=== PATIENT | female | born 1950 | race American Indian/Alaskan Native ===

== ENCOUNTER 2017-04-29 22:43 | Emergency (ER) | payer MEDICARE ==
[~2017-04-29] VITALS: Ht 149.9 cm; Wt 68.0 kg
[~2017-04-29 22:43] MED LIST: CARV12.52; ENAL20TA76; GLYB2.5T4; HYDR12.570; HYDR1TAB PO; LEVO50TA63; MECL25TA3 PO; NFMET1000; PENI500T PO; SIMV10TA3
--- OUTSIDE RECORDS SUMMARY | 2017-04-29 22:49 | XMS REPORT | Continuity of Care Document ---
Author Author [facility] Organization [facility] Address Unknown Phone Unavailable Allergies Active Description Code Type Severity Reaction Onset Reported/Identified Relationship to Patient Clinical Status Yes nifedipine [id number] Drug Allergy Mild N/A 10/13/2008 Medications Problems Date Dx Coded Attending Type Code Diagnosis Diagnosed By 04/15/2015 JENNIFER AYERS MD Ot E11.9 04/15/2015 JENNIFER AYERS MD Ot I10 04/15/2015 JENNIFER AYERS MD Ot R42 Procedures Results Encounters ACCT No. Visit Date/Time Discharge Status Pt. Type Provider Facility Loc./Unit Complaint [id number] 04/15/2015 05:34:00 2014 08:23:00 DIS Emergency JENNIFER AYERS MD [facility] ER
[2017-04-29] MEDS ORDERED: LACTATED RINGERS 1,000 ML IV ONE (23:09)
[2017-04-29] MEDS ORDERED: NS IV 1000 ML 1,000 ML ONE (23:14)
[2017-04-29] MEDS ORDERED: ACETAMINOPHEN 500 MG TAB (TYLENOL) PO ONE (23:15)
[2017-04-29] MEDS ORDERED: ONDANSETRON 4 MG/2 ML (SDV) Z0FRAN IVP ONE (23:15)
[2017-04-29] MEDS ORDERED: IBUPROFEN 800 MG (MOTRIN) TAB PO ONE (23:15)
[2017-04-29 23:26] LABS: BASOPHILS % (AUTO) 0 % (0-10); EOSINOPHILS # (AUTO) 0.1 10^3/uL (0.0-0.3); EOSINOPHILS % (AUTO) 1 % (0-10); LYMPHOCYTES # (AUTO) 0.4 X 10^3 (1.0-4.0); LYMPHOCYTES % (AUTO) 4 % (12-44); MEAN CORPUSCULAR HEMOGLOBIN 30 PG (25-34); MEAN CORPUSCULAR HGB CONC 34 G/DL (32-36); MEAN CORPUSCULAR VOLUME 89 FL (80-99); MEAN PLATELET VOLUME 9.7 FL (7.4-10.4); MONOCYTES # (AUTO) 0.5 X 10^3 (0.0-1.0); MONOCYTES % (AUTO) 5 % (0-12); NEUTROPHILS # (AUTO) 8.6 X 10^3 (1.8-7.8); NEUTROPHILS % (AUTO) 89 % (42-75); PLATELET COUNT 226 10^3/uL (130-400); RED BLOOD COUNT 4.24 10^6/uL (4.35-5.85); RED CELL DISTRIBUTION WIDTH 12.3 % (10.0-14.5); WHITE BLOOD COUNT 9.7 10^3/uL (4.3-11.0)
--- NOTE | 2017-04-29 23:36 | ED General ---
General Chief Complaint: Fever-Adult/Adol Stated Complaint: FEVER,THROWING UP,COLD Source of Information: Patient, Family (GRAND DAUGHTER) History of Present Illness Time Seen by Provider: 23:09 Initial Comments PT ARRIVES VIA POV FROM HOME C/O NAUSEA AND VOMITED X 3, ALONG WITH DIZZINESS X 30 MINUTES NO ABDOMINAL PAIN NO DIARRHEA PT STATES SHE HAS MENIERE'S / VERTIGO AND HAS ANTIVERT, BUT HAS NOT TAKEN ANY RECENTLY AND DID NOT TAKE ANY TONIGHT STATES SHE MIGHT HAVE BEEN A LITTLE DIZZY EARLIER IN THE DAY, BUT OTHERWISE FELT FINE NO URINARY SYMPTOMS NO COUGH/URI SYMPTOMS NO HEADACHE PT HAS TEMP OF 103.5 ON ARRIVAL TO ER, BUT PT WAS UNAWARE OF FEVER, AND PT WAS VERY HEAVILY BUNDLED INCLUDING A THICK HAT PT HAS HAD RIGHT EYE INFECTION SINCE YESTERDAY, HAS NOT SOUGHT CARE, AND TAKING BENADRYL EVERY 4 HOURS---STATES IT IS GETTING BETTER. NO VISION CHANGES HAS HISTORY OF THESE SAME SYMPTOMS NO KNOWN SICK CONTACTS HAS NOT TAKEN HER PM MEDICATIONS, BUT HAS EATEN ALOT OF HALLOWEEN CANDY TONIGHT PCP: CLINIC IN [place] Allergies and Home Medications Allergies Coded Allergies: Nifedipine (Unverified Allergy, Mild, 10/13/08) Home Medications Carvedilol 12.5 Mg Tablet, (Reported) Cefdinir 300 Mg Capsule, 300 MG PO BID, #20 Prescribed by: ELAL WHALEN on 04/30/1735 Ciprofloxacin HCl 2.5 Ml Drops, 2.5 ML OP UD for 7 Days, #1 2 DROPS TO AFFECTED EYE EVERY 2 HOURS WHILE AWAKE FOR FIRST 2 DAYS, THEN Q 4 HOURS WHILE AWAKE FOR A TOTAL OF 7 DAYS Prescribed by: ELLA WHALEN on 04/30/17 003 Enalapril Maleate 20 Mg Tablet, (Reported) Glyburide 2.5 Mg Tablet, (Reported) Hydrochlorothiazide 12.5 Mg Cap, (Reported) Hydrocodone Bit/Acetaminophen 1 Each Tablet, 1-2 EACH PO Q4HR PRN, #20 Ref 0 PRN PAIN Prescribed by: LIYA CASILLAS on 10/14/08 0057 Levothyroxine Sodium 50 Mcg Tablet, (Reported) Meclizine HCl 25 Mg Tablet, 25 MG PO Q4H, #30 Prescribed by: JENNIFER AYERS on 04/15/15 0810 Metformin Hcl 1,000 Mg Tablet, (Reported) Ondansetron 4 Mg Tab.rapdis, 4 MG PO Q4H, #10 Prescribed by: ELLA WHALEN on 04/30/17 0036 Penicillin V Potassium 500 Mg Tablet, 500 MG PO BID, #10 Ref 0 Prescribed by: LIYA CASLILAS on 10/14/08 0058 Simvastatin 10 Mg Tablet, (Reported) Constitutional: see HPI, dizziness, weakness EENTM: see HPI, ear discharge Respiratory: no symptoms reported, No cough, No short of breath Cardiovascular: no symptoms reported Gastrointestinal: see HPI, No abdominal pain, No diarrhea, No loss of appetite , nausea, vomiting Genitourinary: no symptoms reported Musculoskeletal: no symptoms reported Skin: no symptoms reported Psychiatric/Neurological: No Symptoms Reported, Denies Headache, Denies Numbness, Denies Paresthesia, Denies Seizure Hematologic/Lymphatic: No Symptoms Reported Immunological/Allergic: no symptoms reported Past Grptimf-Kscmwe-Tosogr Hx Patient Social History Alcohol Use: Denies Use Recreational Drug Use: No Smoking Status: Never a Smoker Recent Foreign Travel: No Contact w/Someone Who Travel: No Surgeries History of Surgeries: Yes (HERNIA REPAIR) Surgeries: Abdominal, Gallbladder Respiratory History of Respiratory Disorde: No Cardiovascular History of Cardiac Disorders: Yes Cardiac Disorders: Hypertension Neurological History of Neurological Disord: Yes (MENIERE'S / VERTIGO) Neurological Disorders: Vertigo Reproductive System Hx Reproductive Disorders: No Genitourinary History of Genitourinary Disor: No Gastrointestinal History of Gastrointestinal Di: No (S/P SUSAN) Gastrointestinal Disorders: Gall Bladder Disease Musculoskeletal History of Musculoskeletal Dis: Yes (LEFT SHOULDER FX. LEFT KNEE FX--NO SURGERIES) Endocrine History of Endocrine Disorders: Yes Endocrine Disorders: Diabetes, Non-Insulin dep HEENT History of HEENT Disorders: No Cancer History of Cancer: No Psychosocial History of Psychiatric Problem: No Integumentary History of Skin or Integumenta: No Blood Transfusions History of Blood Disorders: No Adverse Reaction to a Blood Tr: No Physical Exam Vital Signs Vital Sign - Last 12Hours 04/29/17 23:03 Temp 103.5 Pulse 85 Resp 18 B/P (MAP) 201/98 Pulse Ox 95 O2 Delivery Room Air Capillary Refill : General Appearance: No Apparent Distress, WD/WN, Other (MILDLY LETHARGIC) HEENT: PERRL/EOMI, Other (RIGHT CONJUNCTIVA INFLAMED WITH PURULENT DRAINAGE. SLIGHT SWELLING AND ERYTHEMA TO UPPER AND LOWER EYELIDS, NO TENDERNESS TO AREA) Neck: Full Range of Motion, Normal Inspection, Non Tender, Supple Respiratory: Normal Breath Sounds, No Accessory Muscle Use, No Respiratory Distress Cardiovascular: Regular Rate, Rhythm, No Edema, No JVD, No Murmur, Normal Peripheral Pulses Gastrointestinal: Normal Bowel Sounds, No Organomegaly, No Pulsatile Mass, Non Tender, Soft Back: Normal Inspection, No CVA Tenderness, No Vertebral Tenderness Extremity: Normal Capillary Refill, Normal Inspection, Normal Range of Motion, Non Tender, No Calf Tenderness, No Pedal Edema Neurologic/Psychiatric: Alert, Oriented x3, No Motor/Sensory Deficits, Normal Mood/Affect, assistant printer floor covering II-XII Norm as Tested Skin: Normal Color, Warm/Dry Focused Exam Evaluation Lactate Level Laboratory Tests 04/29/17 23:13: Lactic Acid Level 2.06*H Lactic Acid Level Laboratory Tests Test 04/29/17 23:13 Lactic Acid Level 2.06 MMOL/L (0.50-2.00) *H Progress/Results/Core Measures Results/Orders Lab Results Laboratory Tests Test 04/29/17 23:13 04/29/17 23:58 Range/Units White Blood Count 9.7 4.3-11.0 10^3/uL Red Blood Count 4.24 L 4.35-5.85 10^6/uL Hemoglobin 12.9 11.5-16.0 G/DL Hematocrit 38 35-52 % Mean Corpuscular Volume 89 80-99 FL Mean Corpuscular Hemoglobin 30 25-34 PG Mean Corpuscular Hemoglobin Concent 34 32-36 G/DL Red Cell Distribution Width 12.3 10.0-14.5 % Platelet Count 226 130-400 10^3/uL Mean Platelet Volume 9.7 7.4-10.4 FL Neutrophils (%) (Auto) 89 H 42-75 % Lymphocytes (%) (Auto) 4 L 12-44 % Monocytes (%) (Auto) 5 0-12 % Eosinophils (%) (Auto) 1 0-10 % Basophils (%) (Auto) 0 0-10 % Neutrophils # (Auto) 8.6 H 1.8-7.8 X 10^3 Lymphocytes # (Auto) 0.4 L 1.0-4.0 X 10^3 Monocytes # (Auto) 0.5 0.0-1.0 X 10^3 Eosinophils # (Auto) 0.1 0.0-0.3 10^3/uL Basophils # (Auto) 0.0 0.0-0.1 10^3/uL Neutrophils % (Manual) 94 % Lymphocytes % (Manual) 4 % Monocytes % (Manual) 2 % Eosinophils % (Manual) 0 % Basophils % (Manual) 0 % Band Neutrophils 0 % Blood Morphology Comment NORMAL Sodium Level 140 135-145 MMOL/L Potassium Level 3.6 3.6-5.0 MMOL/L Chloride Level 106 98-107 MMOL/L Carbon Dioxide Level 20 L 21-32 MMOL/L Anion Gap 14 5-14 MMOL/L Blood Urea Nitrogen 14 7-18 MG/DL Creatinine 1.02 0.60-1.30 MG/DL Estimat Glomerular Filtration Rate 54 BUN/Creatinine Ratio 14 Glucose Level 260 H 70-105 MG/DL Lactic Acid Level 2.06 *H 0.50-2.00 MMOL/L Calcium Level 9.0 8.5-10.1 MG/DL Total Bilirubin 0.4 0.1-1.0 MG/DL Aspartate Amino Transf (AST/SGOT) 35 H 5-34 U/L Alanine Aminotransferase (ALT/SGPT) 27 0-55 U/L Alkaline Phosphatase 95 40-136 U/L Total Protein 7.4 6.4-8.2 GM/DL Albumin 3.9 3.2-4.5 GM/DL Urine Color YELLOW Urine Clarity CLEAR Urine pH 8 5-9 Urine Specific [place] 1.010 L 1.016-1.022 Urine Protein 2+ H NEGATIVE Urine Glucose (UA) 4+ H NEGATIVE Urine Ketones NEGATIVE NEGATIVE Urine Nitrite NEGATIVE NEGATIVE Urine Bilirubin NEGATIVE NEGATIVE Urine Urobilinogen NORMAL NORMAL MG/DL Urine Leukocyte Esterase 1+ H NEGATIVE Urine RBC (Auto) NEGATIVE NEGATIVE Urine RBC NONE /HPF Urine WBC 2-5 /HPF Urine Squamous Epithelial Cells 0-2 /HPF Urine Crystals NONE /LPF Urine Bacteria NEGATIVE /HPF Urine Casts NONE /LPF Urine Mucus NEGATIVE /LPF Urine Culture Indicated NO Micro Results Microbiology 04/29/17 Influenza Types A,B Antigen ([facility]) - Final, Complete My Orders Orders - ELLA WHALEN DO Saline Lock/Iv-Start (04/29/17 23:09) Cbc With Automated Diff (04/29/17 23:09) Comprehensive Metabolic Panel (04/29/17 23:09) Lactic Acid Analyzer (04/29/17 23:09) Ua Culture If Indicated (04/29/17 23:09) Blood Culture (04/29/17 23:09) Influenza A And B Antigens (04/29/17 23:09) Chest 1 View, Ap/Pa Only (04/29/17 23:09) Lactated Ringers (Lr 1000 Ml Iv Solution (04/29/17 23:09) Ondansetron Injection (Zofran Injectio (04/29/17 23:15) Acetaminophen Tablet (Tylenol Tablet) (04/29/17 23:15) Ibuprofen Tablet (Motrin Tablet) (04/29/17 23:15) Monitor-Rhythm Ecg Trace Only (04/29/17 23:09) Ns Iv 1000 Ml (Sodium Chloride 0.9%) (04/29/17 23:14) Manual Differential (04/29/17 23:13) Ceftriaxone Injection (Rocephin Injectio (04/30/17 00:30) Ceftriaxone Injection (Rocephin Injectio (04/30/17 00:19) Ns (Ivpb) (Sodium Chloride 0.9% Ivpb Bag (04/30/17 00:19) Medications Given in ED Current Medications Medications Dose Ordered Sig/John Route Start Time Stop Time Status Last Admin Dose Admin Acetaminophen 1,000 mg ONCE ONCE PO 04/29/17 23:15 04/29/17 23:16 DC 04/30/17 00:04 1,000 MG Ceftriaxone Sodium 1000 mg/ Sodium Chloride 50 ml @ 100 mls/hr ONCE ONCE IV 04/30/17 00:30 04/30/17 00:59 UNV 04/30/17 00:31 100 MLS/HR Ibuprofen 800 mg ONCE ONCE PO 04/29/17 23:15 04/29/17 23:16 DC 04/30/17 00:04 800 MG Ondansetron HCl 4 mg ONCE ONCE IVP 04/29/17 23:15 04/29/17 23:16 DC 04/29/17 23:25 4 MG Sodium Chloride 1,000 ml @ ud STK-MED ONCE .ROUTE 04/29/17 23:14 04/29/17 23:23 DC 04/29/17 23:25 1,000 MLS/HR Vital Signs/I&O Vital Sign - Last 12Hours 04/29/17 23:03 Temp 103.5 Pulse 85 Resp 18 B/P (MAP) 201/98 Pulse Ox 95 O2 Delivery Room Air Progress Note : Progress Note NAUSEA AND DIZZINESS RESOLVED WITH ZOFRAN AND IV FLUIDS PT AMBULATED TO AND FROM BATHROOM WITHOUT ANY DIFFICULTY AND NO DIZZINESS Diagnostic Imaging Comments CXR--NO ACUTE PROCESS, PENDING RADIOLOGIST REVIEW Reviewed: Reviewed by Me Departure Impression Impression: Primary Impression: UTI (urinary tract infection) Additional Impressions: NIDDM Nausea & vomiting Chronic vertigo Conjunctivitis Disposition: HOME, SELF-CARE Condition: Improved Departure-Patient Inst. Referrals: NO,LOCAL PHYSICIAN (PCP/Family) Primary Care Physician Patient Instructions: Blood Glucose Monitoring, Conjunctivitis (Pinkeye) (DC), Diabetes Diet , Nausea and Vomiting, Adult (DC), Urinary Tract Infection, Adult (DC), VERTIGO Add. Discharge Instructions: CLEAR LIQUIDS--WATER, BROTH, JELLO, GATORADE BRATS DIET--BANANAS, RICE, APPLESAUCE, TOAST SALTINES TAKE YOUR MEDICATIONS PRESCRIBED FOLLOW UP WITH YOUR DR IN 1-2 DAYS IF NO BETTER All discharge instructions reviewed with patient and/or family. Voiced understanding. Scripts Ondansetron (Zofran Odt) 4 Mg Tab.rapdis 4 MG PO Q4H for Nausea/Vomiting, #10 TAB Prov: ELLA WHALEN DO 04/30/17 Ciprofloxacin HCl (Ciprofloxacin HCl) 2.5 Ml Drops 2.5 ML OP UD for 7 Days, #1 DROPS 2 DROPS TO AFFECTED EYE EVERY 2 HOURS WHILE AWAKE FOR FIRST 2 DAYS, THEN Q 4 HOURS WHILE AWAKE FOR A TOTAL OF 7 DAYS Prov: ELLA WHALEN DO 04/30/17 Cefdinir (Cefdinir) 300 Mg Capsule 300 MG PO BID for FOR INFECTION, #20 CAP Prov: ELLA WHALEN DO 04/30/17 ELLA WHALEN DO Apr 29, 2017 23:36
[2017-04-29 23:43] LABS: BAND NEUTROPHILS 0 %; BASOPHILS % (MANUAL) 0 %; EOSINOPHILS % (MANUAL) 0 %; LYMPHOCYTES % (MANUAL) 4 %; NEUTROPHILS % (MANUAL) 94 %
[2017-04-29 23:47] LABS: ALBUMIN 3.9 GM/DL (3.2-4.5); BILIRUBIN,TOTAL 0.4 MG/DL (0.1-1.0); CREATININE SERUM 1.02 MG/DL (0.60-1.30); POTASSIUM 3.6 MMOL/L (3.6-5.0); TOTAL PROTEIN 7.4 GM/DL (6.4-8.2)
[2017-04-30 00:11] LABS: BILIRUBIN,URINE NEGATIVE (NEGATIVE); KETONES,URINE NEGATIVE (NEGATIVE); LEUKOCYTE ESTERASE ,URINE 1+ (NEGATIVE); NITRITE,URINE NEGATIVE (NEGATIVE); PH,URINE 8 (5-9); PROTEIN,URINE 2+ (NEGATIVE); UROBILINOGEN,URINE NORMAL (NORMAL)
[2017-04-30 00:13] LABS: SQUAMOUS EPITHELIAL CELL,UR 0-2 /HPF
[2017-04-30] MEDS ORDERED: cefTRIAXone 1 GM (ROCEPHIN) VIAL ONE (00:19)
[2017-04-30] MEDS ORDERED: NS (IVPB) 50 ML ONE (00:19)
[2017-04-30] MEDS ORDERED: cefTRIAXone INJECTION 1,000 MG in NS (IVPB) 50 ML IV ONE (00:30)
[2017-04-30] MEDS ORDERED: CEFD300C3 PO (00:36)
[2017-04-30] MEDS ORDERED: ONDA4TAB8 PO (00:36)
[2017-04-30] MEDS ORDERED: CIPR2.5D2 OP (00:36)
[2017-04-30 00:45] VITALS: BP 134/61
--- NOTE | 2017-04-30 06:56 | Diagnostic Imaging Report ---
INDICATION: Dizziness and fever. COMPARISON: None. FINDINGS: Single frontal view of the chest obtained. Heart size is mildly enlarged. There is no central venous congestion or evidence of failure. No pneumothorax, mediastinal widening or pleural fluid. The lungs are clear. IMPRESSION: Mild cardiomegaly without evidence of failure. No findings of pneumonia or other acute abnormality in the chest. Dictated by: Dictated on workstation # [id number]
== END 2017-04-30 00:45 | disposition home or self-care (01) ==
LOC: EDUNIT# 22:43 → ER 22:45
DX: N39.0 Urinary tract infection, site not specified (principal); E11.9 Type 2 diabetes mellitus without complications; R42 Dizziness and giddiness; H10.9 Unspecified conjunctivitis; I10 Essential (primary) hypertension; Z90.49 Acquired absence of other specified parts of digestive tract; Z79.84 Long term (current) use of oral hypoglycemic drugs; Z87.19 Personal history of other diseases of the digestive system
CPT/HCPCS: 36415; 71010; 80053; 81000; 83605; 85007; 85027; 87040; 87804; 96361; 96374; 96375

== ENCOUNTER 2020-02-04 14:06 | Day surgery (SDC) | payer MEDICARE ==
[2020-02-04] VITALS (8 sets, daily range): BP systolic 95–151; BP diastolic 56–82
[~2020-02-04] VITALS: Ht 157 cm; Wt 66.2 kg
[~2020-02-04 14:06] MED LIST changes: +CEFD300C3 PO; +CIPR2.5D2 OP; +ONDA4TAB8 PO
[2020-02-04] MEDS ORDERED: HEParin 1000 UNIT/ML (10ML VIAL) FOR BOLUS ONE ×2 (14:07→14:14)
--- NOTE | 2020-02-04 14:07 | NUR ---
EKG shows Acute Inferior Infarct with ST elevation present. Isac Blas NP notified Dr. Aguilera. laborer wrecking and salvaging getting ready for patient.
[2020-02-04] MEDS ORDERED: CLOPIDOGREL 300 MG (PLAVIX) TABLET PO ONE ×2 (14:08→14:45)
[2020-02-04] MEDS ORDERED: ASPIRIN 81 MG CHEW (CHILDREN'S ASA) ONE (14:08)
--- NOTE | 2020-02-04 14:08 | NUR ---
Crash cart in room. Defibrillation patches placed on the patient. Patient's heart rate continues to be 36.
--- NOTE | 2020-02-04 14:11 | NUR ---
Aspirin 324 mg given PO. Plavix 300 mg given PO.
--- NOTE | 2020-02-04 14:11 | NUR ---
Heparin Bolus 5000 units given IVP.
[2020-02-04] MEDS ORDERED: MIDAZOLAM 5 MG/5 ML (VERSED) VIAL ONE (14:12)
[2020-02-04] MEDS ORDERED: fentaNYL INJECTION 100 MCG/2 ML AMP ONE ×2 (14:12→14:20)
[2020-02-04] MEDS ORDERED: LIDOCAINE 1% INJ 20 ML 20 ML VIAL ONE (14:12)
[2020-02-04] MEDS ORDERED: NS IV 1000 ML 1,000 ML ONE ×2 (14:12)
--- NOTE | 2020-02-04 14:12 | NUR ---
Patient gave verbal consent for Heart cath.
[2020-02-04] MEDS ORDERED: HEParin (CATH LAB) 2,000 ML IV ONE (14:13)
[2020-02-04] MEDS ORDERED: NITRO DRIP 25000 MCG/D5W 0 ML IV ONE (14:15)
[2020-02-04] MEDS ORDERED: EPTIFIBATIDE BOLUS 20 ML IV ONE (14:15)
--- NOTE | 2020-02-04 14:15 | NUR ---
14:15 Atropine 0.5 mg given IVP. Heart rate does not change from 36. 14:17 BP 82/65, Pulse 37, O2 sat 100% RA 14:18 16 fr. flores catheter placed by Saurabh GARDINER. Clear yellow urine present in tubing. 14:20 UA collected from flores to send to lab. 14:21 Dopamine IV started at 5 mcg/kg/min via IV pump. 14:22 Pacing started by Isac Blas SENIOR CLINICAL DATA MANAGER rate of 70 with pacing current output of 40 mA. 14:22 Patient taken by cart to laborer plumbing with bus driver/monitor and defibrillator with Saurabh GARDINER, Brandee GARDINER and Isac Blas, SENIOR CLINICAL DATA MANAGER.
[2020-02-04] MEDS ORDERED: CATHETER FLUSH 10 ML SYR IV ONE (14:16)
[2020-02-04] MEDS ORDERED: DOPamine DRIP 250 ML IV ONE (14:16)
[2020-02-04] MEDS ORDERED: EPINEPHrine 0.1 MG/ML 10 ML (HOSPIRA) SYR IJ ONE (14:16)
[2020-02-04] MEDS ORDERED: ATROPINE INJECTION 1 MG/10 ML SYR (ABBOTT) INJ ONE (14:16)
[2020-02-04] MEDS: DOPamine DRIP 250 ML IV SCH (14:21)
[2020-02-04] MEDS ORDERED: ASPIRIN 81 MG CHEW (CHILDREN'S ASA) PO ONE (14:45)
[2020-02-04] MEDS ORDERED: NS IV 1000 ML 1,000 ML IV STA (14:50)
--- NOTE | 2020-02-04 14:52 | ED Cardiac General ---
History of Present Illness General Chief Complaint: Cardiac/General Problems Stated Complaint: CATH Nursing Triage Note: Patient brought to ER room 7 via [facility] with complaint of elevated blood sugar. Patient states she was driving in her vehicle when she suddenly began to feel ill and pulled over and called EMS. She states she began to have visual disturbances and generalized weakness. patient denies any chest pain or shortness of breath. EMS states their glucometer read HI. A IV was placed by them and fluid bolus started. When patient arrived she was very diaphoretic with hypotension and a heart rate of 35. She continues to deny any chest pain at this time. Source: patient Exam Limitations: no limitations History of Present Illness Date Seen by Provider: Feb 04, 2020 Time Seen by Provider: 14:47 Initial Comments to ER by EMS with reports of hyperglycemia. Patient began feeling ill suddenly while driving her car just prior to arrival. She pulled over and summoned EMS. Her blood sugar was found to be too high to read. She had an IV started and had 1 L of IV fluids started. She is a known diabetic on metformin and glyburide Timing/Duration: changing over time Severity: moderate Activities at Onset: none NTG SL OYSTER HARVESTER: No ASA po OYSTER HARVESTER: No Associated Systoms: Diaphoresis Allergies and Home Medications Allergies Coded Allergies: nifedipine (Unverified Allergy, Mild, 10/13/08) Home Medications Cefdinir 300 Mg Capsule, 300 MG PO BID Prescribed by: ELLA WHALEN on 04/30/1735 Ciprofloxacin HCl 2.5 Ml Drops, 2.5 ML OP UD 2 DROPS TO AFFECTED EYE EVERY 2 HOURS WHILE AWAKE FOR FIRST 2 DAYS, THEN Q 4 HOURS WHILE AWAKE FOR A TOTAL OF 7 DAYS Prescribed by: ELLA WHALEN on 04/30/1735 Hydrocodone Bit/Acetaminophen 1 Each Tablet, 1-2 EACH PO Q4HR PRN PRN PAIN Prescribed by: LIYA CASILLAS on 10/14/08 005 Meclizine HCl 25 Mg Tablet, 25 MG PO Q4H Prescribed by: JENNIFER AYERS on 04/15/15 0810 Ondansetron 4 Mg Tab.rapdis, 4 MG PO Q4H Prescribed by: ELLA WHALEN on 04/30/1735 Penicillin V Potassium 500 Mg Tablet, 500 MG PO BID Prescribed by: LIYA CASILLAS on 10/14/08 0058 Patient Home Medication List Home Medication List Reviewed: Yes Review of Systems Review of Systems Constitutional: see HPI, diaphoresis EENTM: No Symptoms Reported Respiratory: No Symptoms Reported Cardiovascular: No Symptoms Reported Gastrointestinal: No Symptoms Reported Genitourinary: No Symptoms Reported Musculoskeletal: no symptoms reported Skin: no symptoms reported Psychiatric/Neurological: No Symptoms Reported Endocrine: No Symptoms Reported Hematologic/Lymphatic: No Symptoms Reported Past Hnlczdg-Wzfrkm-Ukitfk Hx Patient Social History Alcohol Use: Denies Use Recreational Drug Use: No Smoking Status: Unknown if Ever Smoked 2nd Hand Smoke Exposure: No Recent Foreign Travel: No Contact w/Someone Who Travel: No Recent Infectious Disease Expo: No Recent Hopitalizations: No Past Medical History Surgeries: Yes (HERNIA REPAIR) Abdominal, Gallbladder Respiratory: No Cardiac: Yes Hypertension Neurological: Yes (MENIERE'S / VERTIGO) Vertigo : No Reproductive Disorders: No Genitourinary: No Gastrointestinal: No (S/P SUSAN) Gall Bladder Disease Musculoskeletal: Yes (LEFT SHOULDER FX. LEFT KNEE FX--NO SURGERIES) Endocrine: Yes Diabetes, Non-Insulin dep HEENT: No Cancer: No Psychosocial: No Integumentary: No Blood Disorders: No Adverse Reaction/Blood Tranf: No Physical Exam Vital Signs Vital Signs - First Documented 02/04/20 14:06 Temp 36.3 Pulse 36 Resp 16 B/P (MAP) 84/58 (67) Pulse Ox 100 O2 Delivery Room Air Capillary Refill : Less Than 3 Seconds Height, Weight, BMI Height: 4'11.00" Weight: 150lbs. oz. 68.691924mz; 27.00 BMI Method:Stated General Appearance: WD/WN, Moderate Distress (lethargic, diaphoretic, heart rat e of 36. Blood pressure 80s systolic. 2 L IV fluids infusing, dopamine started at 5 mics per kilo per minute increased to 10 mics per kilo per minute.Amp of atropine failed to affect heart rate. EKG shows ST elevation in multiple leads with reciprocal ST depression. Dr. Aguilera notified and patient shortly thereafter taken to Licensing Registration Examiner she was given 300mg plavix, 324mg asa, 5000 units heparin IV. ) HEENT: PERRL/EOMI, TMs Normal Neck: Full Range of Motion, Normal Inspection Respiratory: No Accessory Muscle Use, No Respiratory Distress Cardiovascular: Regular Rate, Rhythm, Normal Peripheral Pulses Gastrointestinal: Non Tender, Soft Extremity: Normal Capillary Refill, Normal Inspection Neurologic/Psychiatric: Alert, Oriented x3 Skin: Normal Color, Warm/Dry Progress/Results/Core Measures Results/Orders Vital Signs/I&O 02/04/20 14:06 Temp 36.3 Pulse 36 Resp 16 B/P (MAP) 84/58 (67) Pulse Ox 100 O2 Delivery Room Air Blood Pressure Mean: 67 Departure Impression Primary Impression: STEMI (ST elevation myocardial infarction) Qualified Codes: I21.3 - ST elevation (STEMI) myocardial infarction of unspecified site Additional Impression: Hyperglycemia Disposition: ADMITTED INPATIENT Condition: Critical Admissions Decision to Admit Reason: Admit from ER (General) Decision to Admit/Date: Feb 04, 2020 Time/Decision to Admit Time: 14:51 Departure-Patient Inst. Referrals: NO,LOCAL PHYSICIAN (PCP/Family) Primary Care Physician COLLIN KOCH APRN Feb 04, 2020 14:52
[2020-02-04 14:53] LABS: BASOPHILS % (AUTO) 0 % (0-10); EOSINOPHILS # (AUTO) 0.1 10^3/uL (0.0-0.3); EOSINOPHILS % (AUTO) 2 % (0-10); HEMATOCRIT 40 % (35-52); HEMOGLOBIN 13.7 G/DL (11.5-16.0); LYMPHOCYTES # (AUTO) 2.3 X 10^3 (1.0-4.0); LYMPHOCYTES % (AUTO) 30 % (12-44); MEAN CORPUSCULAR HEMOGLOBIN 32 PG (25-34); MEAN CORPUSCULAR HGB CONC 34 G/DL (32-36); MEAN CORPUSCULAR VOLUME 92 FL (80-99); MEAN PLATELET VOLUME 10.3 FL (7.4-10.4); MONOCYTES # (AUTO) 0.4 X 10^3 (0.0-1.0); MONOCYTES % (AUTO) 6 % (0-12); NEUTROPHILS # (AUTO) 4.7 X 10^3 (1.8-7.8); NEUTROPHILS % (AUTO) 63 % (42-75); PLATELET COUNT 211 10^3/uL (130-400); RED CELL DISTRIBUTION WIDTH 12.9 % (10.0-14.5); WHITE BLOOD COUNT 7.5 10^3/uL (4.3-11.0)
[2020-02-04 14:57] LABS: PROTHROMBIN TIME PATIENT 13.2 SEC (12.2-14.7)
[2020-02-04] MEDS ORDERED: ATROPINE INJECTION 1 MG/10 ML SYR (ABBOTT) IV ONE (15:00)
--- NOTE | 2020-02-04 15:00 | NUR ---
Patient's daughter Alexandra arrived at the ER. She was taken to lab pack chemist waiting room by Mallory GARDINER. laborer aquatic life notified that she is here.
[2020-02-04 15:06] LABS: ALBUMIN 3.9 GM/DL (3.2-4.5); BILIRUBIN,TOTAL 0.4 MG/DL (0.1-1.0); CALCIUM 8.9 MG/DL (8.5-10.1); CREATININE SERUM 1.41 MG/DL (0.60-1.30); MAGNESIUM 2.3 MG/DL (1.6-2.4); POTASSIUM 4.5 MMOL/L (3.6-5.0); TOTAL PROTEIN 7.2 GM/DL (6.4-8.2)
--- OUTSIDE RECORDS SUMMARY | 2020-02-04 15:14 | XMS REPORT | Continuity of Care Document ---
Author Organization Unknown Address Unknown Phone Unavailable Allergies Active Description Code Type Severity Reaction Onset Reported/Identified Relationship to Patient Clinical Status Yes nifedipine [id number] Drug Allerg y Mild N/A 10/13/2008 Medications There is no data. Problems Date Dx Coded Attending Type Code Diagnosis Diagnosed By 04/15/2015 JENNIFER AYERS MD, Ot E11 .9 TYPE 2 DIABETES MELLITUS WITHOUT COMPLIC 04/15/2015 JENNIFER AYERS MD, Ot I10 ESSENTIAL (PRIMARY) HYPERTENSION 04/15/2015 JENNIFER AYERS MD, Ot R42 DIZZINESS AND GIDDINESS 04/30/2017 OUMOU WHALEN DOA K Ot E11.9 TYPE 2 DIABETES MELLITUS WITHOUT COMPLIC 04/30/2017 MARLEE PEDRO ELLA K Ot H10.9 UNSPECIFIED CONJUNCTIVITIS 04/30/2017 MARLEE PEDRO ELLA K Ot I10 ESSENTIAL (PRIMARY) HYPERTENSION 04/30/2017 MARLEE PEDRO ELLA K Ot N39.0 URINARY TRACT INFECTION, SITE NOT SPECIF 04/30/2017 MARLEE PEDRO ELLA K Ot R11.2 NAUSEA WITH VOMITING, UNSPECIFIED 04/30/2017 MARLEE PEDRO ELLA K Ot R42 DIZZINESS AND GIDDINESS 04/30/2017 MARLEE PEDRO ELLA K Ot 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 Results Test Result Range Complete blood count (CBC) with automate d white blood cell (WBC) differential - 04/29/17 23:13 Blood leukocytes automated count (number/volume) 9.7 10*3/uL 4.3-11.0 Blood erythrocytes automated count (number/volume) 4.24 10*6/uL 4.35-5.85 Venous blood hemoglobin measurement (mass/volume) 12.9 g/dL 11.5-16.0 Blood hematocrit (volume fraction) 38 % 35-52 Automated erythrocyte mean corpuscular volume 89 [ foz_us] 80-99 Automated erythrocyte mean corpuscular h emoglobin (mass per erythrocyte) 30 pg 25-34 Automated erythrocyte mean corpuscular h emoglobin concentration measurement (mass/volume) 34 g/dL 32-36 Automated erythrocyte distribution width ratio 12. 3 % 10.0- 14.5 Automated blood platelet count (count/volume) 226 10*3/uL 130-400 Automated blood platelet mean volume measurement 9.7 [foz_us] 7.4-10.4 Automated blood neutrophils/100 leukocytes 89 % 42-75 Automated blood lymphocytes/100 leukocytes 4 % 12-44 Blood monocytes/100 leukocytes 5 % 0-12 Automated blood eosinophils/100 leukocytes 1 % 0-10 Automated blood basophils/100 leukocytes 0 % 0-10 Blood neutrophils automated count (number/volume) 8.6 10*3 1.8-7.8 Blood lymphocytes automated count (number/volume) 0.4 10*3 1.0-4.0 Blood monocytes automated count (number/volume) 0. 5 10*3 0.0-1.0 Automated eosinophil count 0.1 10*3/uL 0 .0-0.3 Automated blood basophil count (count/volume) 0.0 10*3/uL 0.0-0.1 Blood manual differential performed dete ction - 04/29/17 23:13 Blood monocytes/100 leukocytes 2 % NRG Manual blood segmented neutrophils/100 leukocytes 94 % NRG Blood band neutrophils/100 leukocytes 0 % NRG Manual blood lymphocytes/100 leukocytes 4 % NRG Manual eosinophils/100 leukocytes in nose 0 % NRG Manual blood basophils/100 leukocytes 0 % NRG Blood erythrocyte morphology finding identification NORMAL [facility] Comprehensive metabolic panel - 04/29/17 23:13 Serum or plasma sodium measurement (moles/volume) 140 mmol/L 135-145 Serum or plasma potassium measurement (moles/volume) 3.6 mmol/L 3.6-5.0 Serum or plasma chloride measurement (moles/volume) 106 mmol/L 98-107 Carbon dioxide 20 mmol/L 21-32 Serum or plasma anion gap determination (moles/volume) 14 mmol/L 5-14 Serum or plasma urea nitrogen measurement (mass/volume ) 14 mg/dL 7-18 Serum or plasma creatinine measurement (mass/volume) 1.02 mg/dL 0.60-1.30 Serum or plasma urea nitrogen/creatinine mass ratio 14 NRG Serum or plasma creatinine measurement w ith calculation of estimated glomerular filtration rate 54 NRG Serum or plasma glucose measurement (mass/volume) 260 mg/dL 70-105 Serum or plasma calcium measurement (mass/volume) 9.0 mg/dL 8.5-10.1 Serum or plasma total bilirubin measurement (mass/volu me) 0.4 mg/dL 0.1-1.0 Serum or plasma alkaline phosphatase anna surement (enzymatic activity/volume) 95 U/L 40-136 Serum or plasma aspartate aminotransfera se measurement (enzymatic activity/volume) 35 U/L 5-34 Serum or plasma alanine aminotransferase measurement (enzymatic activity/volume) 27 U/L 0-55 Serum or plasma protein measurement (mass/volume) 7.4 g/dL 6.4-8.2 Serum or plasma albumin measurement (mass/volume) 3.9 g/dL 3.2-4.5 Blood lactic acid measurement (moles/vol ume) - 04/29/17 23:13 Blood lactic acid measurement (moles/volume) 2.06 mmol/L 0.50-2.00 Bacterial blood culture - 04/29/17 23:13 Bacterial blood culture NG [facility] Influenza virus A and B antigen detectio n - 04/29/17 23:30 FLU RESULT NEGATIVE FOR INFLUENZA A AND B ANTIGENS BY IA [facility] Bacterial blood culture - 04/29/17 23:35 QUANTITY OF GROWTH Isolated [facility] Bacterial blood culture [id number] [facility] Complete urinalysis with reflex to cultu re - 04/29/17 23:58 Urine color determination YELLOW G Urine clarity determination CLEAR NR G Urine pH measurement by test strip 8 5-9 Specific gravity of urine by test strip 1.010 1.016-1.022 Urine protein assay by test strip, semi-quantitative 2+ NEGATIVE Urine glucose detection by automated test strip 4+ NEGATIVE Erythrocytes detection in urine sediment by light micr oscopy NEGATIVE NEGATIVE Urine ketones detection by automated test strip NE GATIVE NEGATIVE Urine nitrite detection by test strip NEGATIVE NEGATIVE Urine total bilirubin detection by test strip NEGA TIVE NEGATIVE Urine urobilinogen measurement by automated test strip (mass/volume) NORMAL NORMAL Urine leukocyte esterase detection by dipstick 1+ NEGATIVE Automated urine sediment erythrocyte cou nt by microscopy (number/high power field) NONE NRG Automated urine sediment leukocyte count by microscopy (number/high power field) [HPF] NRG Bacteria detection in urine sediment by light microsco py NEGATIVE NRG Squamous epithelial cells detection in u rine sediment by light microscopy 0-2 NRG Crystals detection in urine sediment by light microsco py NONE NRG Casts detection in urine sediment by light microscopy NONE NRG Mucus detection in urine sediment by light microscopy NEGATIVE NRG Complete urinalysis with reflex to culture NO NRG Encounters ACCT No. Visit Date/Time Discharge Status Pt. Type Provider Facility Loc./Unit Complaint [id number] 08/20/2018 10:05:00 08/20/2018 23:59: 59 CLS Outpatient JENNIFER LAMBERT TAMARMadina [facility] [id number] 04/29/2017 22:45:00 017 00:45:00 DIS Emergency ELLA WHALEN DO [facility] ER FEVER,THROWING UP,COLD [id number] 04/15/2015 05:34:00 015 08:23:00 DIS Emergency ANDRIA QUEVEDO, JENNIFER Alvarado [address] [facility] ER VOMITING
--- OUTSIDE RECORDS SUMMARY | 2020-02-04 15:14 | XMS REPORT ---
Author Author [employer] food [employer] [facility] [place] [employer] [facility] Address [address] [address] Care Team Providers [employer] Director Name Role Phone JENNIFER AYERS MD Unavailable Unavailable MARLEE DO, ELLA K Unavailable Unavailable Unavailable Unavailable Allergies Allergy Reported Allergen(s) Allergy Type Date of Reaction(s) Care Facility Classificati Onset Provider on NIFEdipine NIFEdipine Drug Allergy 10-13-2008 JENNIFER Naik (4 sources) ANDRIA QUEVEDO Available ([id number]) Encounters Encounter Date Encounter Type Encounter Diagnosis Care Provider Facility Start: Patient encounter NONE PCP [facility] 08-20-2018 procedure Center [facility] ([id number]) Start: Emergency department ELLA MARLEE DO Not Avai lable ([id number]) 04-29-2017 patient visit End: 04-30-2017 Start: Emergency department JENNIFER AYERS MD Not Av ailable ([id number]) 04-15-2015 patient visit End: 04-15-2015 Medical Equipment No Information Goals No Information Immunizations No Information Interventions No Information Medications No Information Payers No Information Plan of Treatment No Information Problems Active Problems Problem Problem Date Last Documented Episodic/Chr Provider Classificati Recorded Date onic on Diabetes Type 2 diabetes mellitus without Chronic JENNIFER mellitus complications ANDRIA QUEVEDO without complication (3 sources) Essential Essential (primary) hypertension Chronic JENNIFER hypertension ANDRIA QUEVEDO (3 sources) Past or Other Problems Problem Problem Date Last Documented Episodic/Chr Provider Classificati Recorded Date onic on Conditions Dizziness and giddiness Episodic RODN EY associated ANDRIA QUEVEDO with dizziness or vertigo (4 sources) Inflammation Unspecified conjunctivitis Episodic L ANUEL MARLEE DO , infection of eye (1 source) Nausea and Nausea with vomiting, unspecified Episodic ELLA MARLEE DO vomiting (1 source) Other Personal history of other diseases Episodic ELLA MARLEE DO gastrointest of the digestive system inal disorders (1 source) Unclassified Acquired absence of other specified Episodic ELLA MARLEE DO (1 source) parts of digestive tract Unclassified senior care (current) use of oral LIS A MARLEE DO (1 source) hypoglycemic drugs Urinary Urinary tract infection, site not Episodic ELLA MARLEE DO tract specified infections (1 source) Procedures No Information Results No Information Social History No Information Vital Signs No Information Functional Status No Information Mental Status No Information Additional Source Comments This clinical document has been generated using [employer] software that has been certified by the Office of the National Coordinator for Health Information Technology (ONC 15.99.04.3023.Diam.[id number]) and the National Committee for Estate Planner (NCQA, as an eMeasure certified technology). FOR RECORDS PERTAINING TO PATIENTS WHO ARE OR HAVE BEEN ENROLLED IN A CHEMICAL D EPENDENCY/SUBSTANCE ABUSE PROGRAM, SOME INFORMATION MAY BE OMITTED. This clinica l summary was aggregated from multiple sources. Caution should be exercised in using it in the provision of clinical care. This summary normalizes information from multiple sources, and as a consequence, information in this document may ma terially change the coding, format and clinical context of patient data. In otto tion, data may be omitted in some cases. CLINICAL DECISIONS SHOULD BE BASED ON T HE PRIMARY CLINICAL RECORDS. [employer] provides no warranty or guara ntee of the accuracy or completeness of information in this document.The followi ng information is based on time limited clinical information
[2020-02-04] MEDS ORDERED: ONDANSETRON 4 MG/2 ML (SDV) Z0FRAN ONE (15:43)
[2020-02-04] MEDS ORDERED: PANTOPRAZOLE 40 MG (PROTONIX) TAB PO ONE ×2 (15:45→16:15)
[2020-02-04] MEDS ORDERED: ACETAMINOPHEN 325 MG TABLET PO PRN (15:45)
[2020-02-04] MEDS ORDERED: NS IV 1000 ML 1,000 ML IV SCH (15:48)
[2020-02-04] MEDS ORDERED: D5 1/2 NS 1000 ML IV SOLUTION 1,000 ML IV ONE (15:58)
[2020-02-04] MEDS ORDERED: POTASSIUM CL 10MEQ/50ML IVPB 100 ML IV ONE (15:58)
[2020-02-04] MEDS ORDERED: 1/2 NS IV SOLUTION 1,000 ML IV ONE (15:58)
--- NOTE | 2020-02-04 15:58 | Cardiology History & Physical ---
HPI-Cardiology Cardiology H&P Date of Admission 02/04/20 Primary Care Physician Sylvie,Local Physician Attending Physician Remedios Aguilera MD FACP [facility] CCD[facility] Consulting Physician RENA CC: Gen malaise, abdominal discomfort HPI: 69 yo woman with h/o DM who suddenly felt unwell while driving her car, called EMS, blood sugar found to high (immeasurable), brought to ER, fond to have inf wall STEMI with severe bradycardia and hypotension. Had abd pain and nausea after presentation. We proceeded with emergency cath. Was exhibiting complete heart block and hypotension on the laborer turkey farm; treated with iv atropine and epinephrine. Found to have subtotal prox RCA occlusion; treated with balloon angioplasty (DBT 43 min) and subsequent cor stenting. Now feeling better. Does not report cough, fever, or chills. Had had some shortness of breath with cp, now better Review of Systems-Cardiology Review of Systems Constitutional: No weight loss, No weight gain Eyes: No vision change Ears/Nose/Throat: No ear discharge, No nasal drainage, No recent hearing loss Respiratory: As described under HPI Cardiovascular: As described under HPI Gastrointestinal: As described under HPI Genitourinary: No dysuria, No hematuria Musculoskeletal: No back pain, No joint pain Psychiatric/Neurological: No seizure, No focal weakness, No syncope Hematologic: No other, No bleeding abnormalities [id number] Hx Patient Social History Alcohol Use: Denies Use Recreational Drug Use: No Smoking Status: Unknown if Ever Smoked 2nd Hand Smoke Exposure: No Recent Foreign Travel: No Recent Infectious Disease Expo: No Hospitalization with Isolation: Denies Past Medical History PMH As described under Assessment. Family Medical History Family Medical History: No fam h/o early CAD reported Allergies and Home Medications Allergies Coded Allergies: nifedipine (Unverified Allergy, Mild, 10/13/08) Home Medications Cefdinir 300 Mg Capsule, 300 MG PO BID Prescribed by: ELLA WHALEN on 04/30/1735 Ciprofloxacin HCl 2.5 Ml Drops, 2.5 ML OP UD 2 DROPS TO AFFECTED EYE EVERY 2 HOURS WHILE AWAKE FOR FIRST 2 DAYS, THEN Q 4 HOURS WHILE AWAKE FOR A TOTAL OF 7 DAYS Prescribed by: ELLA WHALEN on 04/30/17 003 Hydrocodone Bit/Acetaminophen 1 Each Tablet, 1-2 EACH PO Q4HR PRN PRN PAIN Prescribed by: LIYA CASILLAS on 10/14/08 0057 Meclizine HCl 25 Mg Tablet, 25 MG PO Q4H Prescribed by: JENNIFER AYERS on 04/15/15 0810 Ondansetron 4 Mg Tab.rapdis, 4 MG PO Q4H Prescribed by: ELLA WHALEN on 04/30/17 0036 Penicillin V Potassium 500 Mg Tablet, 500 MG PO BID Prescribed by: LIYA CASILLAS on 10/14/08 0058 Patient Home Medication List Home Medication List Reviewed: Yes Physical Exam-Cardiology Physical Exam Vital Signs/I&O 02/04/20 02/04/20 02/04/20 14:06 14:21 14:22 Temp 36.3 36.3 Pulse 36 36 36 Resp 16 16 B/P (MAP) 84/58 (67) 82/65 72/42 Pulse Ox 100 100 O2 Delivery Room Air Room Air Capillary Refill : Less Than 3 Seconds Constitutional: AAO x 3, well-developed, well-nourished HEENT: EOMI, hearing is well preserved Neck: carotid pulses are 2 + bilaterally, with good upstrokes Respiratory: No accessory muscle use; other (fair to good bilat air entry) Cardiovascular: regular rate-rhythm, S1 and S2, systolic murmur (soft BHAVANA at card base) Gastrointestinal: soft; No guarding, No rebound; audible bowel sounds Extremities: No clubbing, No cyanosis, No significant edema Neurologic/Psychiatric: other (moves all limbs equally) Skin: No rash on exposed areas, No ulcerations on exposed areas Data Review Labs Laboratory Tests 02/04/20 14:10: White Blood Count 7.5, Red Blood Count 4.33L, Hemoglobin 13.7, Hematocrit 40, Mean Corpuscular Volume 92, Mean Corpuscular Hemoglobin 32, Mean Corpuscular Hemoglobin Concent 34, Red Cell Distribution Width 12.9, Platelet Count 211, Mean Platelet Volume 10.3, Neutrophils (%) (Auto) 63, Lymphocytes (%) (Auto) 30, Monocytes (%) (Auto) 6, Eosinophils (%) (Auto) 2, Basophils (%) (Auto) 0, Neutrophils # (Auto) 4.7, Lymphocytes # (Auto) 2.3, Monocytes # (Auto) 0.4, Eosinophils # (Auto) 0.1, Basophils # (Auto) 0.0, Prothrombin Time 13.2, INR Comment 1.0, Activated Partial Thromboplast Time 24, Sodium Level 137, Potassium Level 4.5, Chloride Level 106, Carbon Dioxide Level 14L, Anion Gap 17H, Blood Urea Nitrogen 17, Creatinine 1.41H, Estimat Glomerular Filtration Rate 37, BUN/Creatinine Ratio 12, Glucose Level 538*H, Calcium Level 8.9, Corrected Calcium 9.0, Magnesium Level 2.3, Total Bilirubin 0.4, Aspartate Amino Transf (AST/SGOT) 46H, Alanine Aminotransferase (ALT/SGPT) 44, Alkaline Phosphatase 79, Myoglobin 53.9, Troponin I 0.056H, B-Type Natriuretic Peptide 21.0, Total Protei n 7.2, Albumin 3.9 Laboratory Tests 02/04/20 14:10 A/P-Cardiology Assessment/Admission Diagnosis Ac inf wall STEMI. Card cath of 02/04/20: subtotal prox RCA successfully stented with Alp Xience 3.0 x 23 stent, mild to mod plaque of the L cors, LVEF 45-50%, posterobasal hypokinesis DM with diabetic ketoacidosis H/o hyperlipidemia H/o hypothyroidism Admission Status: Inpatient Order (span 2 midnights) Reason for Inpatient Admission: Has had ac [place] and has uncontrolled DM and acidosis Discussion and Recomendations * DAPT * BB, if tolerated * Statin * Hospitalist consult for management of DM and acidosis. Spoke with Dr Patiño * COVID test * I discussed her CV issues, cath finding, and interventions undertaken with her and her daughter * Monitor labs Clinical Quality Measures AMI/AHF: ASA po Prior to arrival: REMEDIOS Whitt MD FACP [facility] CCDS Feb 04, 2020 15:57
[2020-02-04] MEDS: POTASSIUM CL 10MEQ/50ML IVPB 50 ML IV SCH ×9 (16:14→23:40)
[2020-02-04] MEDS: 1/2 NS IV SOLUTION 1,000 ML IV SCH ×3 (16:15→20:52)
--- NOTE | 2020-02-04 16:23 | Cardiac Procedure Note-CS/ASA ---
Pre-Procedure Note Pre-Op Procedure Note H&P Reviewed The H&P was reviewed, patient examined and no changes noted. Date H&P Reviewed: Feb 04, 2020 Time H&P Reviewed: 15:00 Conscious Sedation Pre-Proced Time 15:00 ASA Score 4 For ASA 3 and 4: Consider anesthesia and medical clearance. Also, for patients with a history of failed moderate sedation consider anesthesia. Airway Lungs Heart ASA score ASA 1: a normal healthy patient ASA 2: a patient with a mild systemic disease (mid diabetes, controlled hypertension, obesity ASA 3: a patient with a severe systemic disease that limits activity (angina, COPD, prior Myocardial infarction) ASA 4: a patient with an incapacitating disease that is a constant threat to life (CHF, renal failure) ASA 5: a moribund patient not expected to survive 24 hrs. (ruptured aneurysm) ASA 6: a declared brain- patient whose organs are being harvested. For emergent operations, add the letter E after the classification Mallampati Classification Grade 2 Sedation Plan Analgesia, Amnesia, Plan communicated to team members, Discussed options with patient/fam, Discussed risks with patient/fam The patient is an appropriate candidate to undergo the planned procedure, sedation, and anesthesia. The patient immediately re-assessed prior to indication. MAT PEREIRA MD FACP [facility] CCDS Feb 04, 2020 16:23
[2020-02-04 16:30] LABS: BILIRUBIN,URINE NEGATIVE (NEGATIVE); CLARITY,URINE CLEAR; COLOR,URINE YELLOW; GLUCOSE, URINE (UA) 3+ (NEGATIVE); KETONES,URINE NEGATIVE (NEGATIVE); LEUKOCYTE ESTERASE ,URINE NEGATIVE (NEGATIVE); NITRITE,URINE NEGATIVE (NEGATIVE); PROTEIN,URINE NEGATIVE (NEGATIVE)
[2020-02-04] MEDS ORDERED: ONDANSETRON 4 MG/2 ML (SDV) Z0FRAN IVP PRN (16:30)
[2020-02-04 16:57] LABS: BACTERIA,URINE NEGATIVE /HPF
[2020-02-04 16:58] LABS: WBC,URINE RARE /HPF
[2020-02-04 17:56] LABS: CALCIUM 8.2 MG/DL (8.5-10.1); CREATININE SERUM 1.15 MG/DL (0.60-1.30); POTASSIUM 4.9 MMOL/L (3.6-5.0)
[2020-02-04] MEDS: D5 1/2 NS 1000 ML IV SOLUTION 1,000 ML IV SCH ×2 (19:54→23:46)
[2020-02-04 20:31] LABS: CALCIUM 7.7 MG/DL (8.5-10.1); CREATININE SERUM 1.06 MG/DL (0.60-1.30); POTASSIUM 4.1 MMOL/L (3.6-5.0)
--- NOTE | 2020-02-04 20:40 | NUR ---
DR RUSHING NOTIFIED OF PT CURRENT LAB RESULTS. ORDERS GIVEN TO DRAW NEXT BMP AT 0300 WITH AM LABS.
[2020-02-04] MEDS: meTOprolol TARTRATE 25 MG (LOPRESSOR) TABLET PO SCH (20:41)
--- NOTE | 2020-02-04 23:03 | CARDIAC CATHETERIZATION ---
DATE OF SERVICE: 02/04/2020 The patient is a 69-year-old lady who presented to the emergency room with acute ST elevation myocardial infarction. The ST elevations in the inferior leads. She was having profound bradycardia and intermittent complete heart block and hypotension. Emergency cardiac catheterization was carried out. PROCEDURE IN DETAIL: She was brought to the cardiac catheterization laboratory. Right groin was prepared and draped in the usual sterile fashion. Lidocaine 1% was used for local anesthesia. Modified Seldinger technique was used to advance a 6-Algerian sheath in right femoral artery. We proceeded with angiography of the right coronary artery first because that was a culprit vessel. Following angiography and the completion of the intervention (as described below), we carried out angiography of the left coronary system. For the left coronary system, we used a 6-Algerian JL4 catheter. We then carried out left heart catheterization, left ventricular angiography. We used a 6-Algerian pigtail catheter. The pigtail catheter was removed. Angiography of the right femoral artery was carried out through the sheath. Mynx was used to achieve hemostasis. PERCUTANEOUS INTERVENTION OF THE RIGHT CORONARY ARTERY: The right coronary artery was exhibiting 99% proximal stenosis. We used a 6-Algerian Armstrong's Clubb guide catheter to engage the right coronary artery. We used a ChoICE floppy PT wire to cross the lesion and the tip was placed in the distal vessel. We carried out balloon angioplasty with Emerge 2.5 x 20 mm balloon. This improved the stenosis from 99% to approximately 60% and restored normal antegrade flow. The balloon was removed and we then stented the diseased segment with Alpine Xience 3.0 x 23 mm stent that was deployed at 15 atmospheres. Subsequent angiography revealed 0% residual stenosis at the previous site of 99% stenosis and flow throughout the vessel is normal. HEMODYNAMICS: Left ventricular end-diastolic pressure following coronary angiography was 24 mmHg. There was no significant pressure gradient on pullback across the aortic valve. Ascending aortic pressure was 111/60 with a mean of 80 mmHg. LEFT VENTRICULAR ANGIOGRAPHY: Left ventricular angiography was carried out in the right anterior oblique projection. Global left ventricular systolic function is mildly impaired. There is posterobasal hypokinesis. Left ventricular ejection fraction is approximately 45% to 50%. There does not appear to be significant mitral regurgitation. CORONARY ANGIOGRAPHY: Left main coronary artery is free of significant disease. Left anterior descending and left circumflex arteries have diffuse mild to moderate plaque. Right coronary artery is dominant and had 99% proximal stenosis to which successful stenting was carried out as described above. CONCLUSIONS: 1. Coronary artery disease primarily consisting of 99% stenosis of the right coronary that was resulting in acute ST elevation myocardial infarction. This was treated with primary balloon angioplasty and subsequent stenting with Alpine Xience 3.0 x 23 mm stent. The rest of the coronary vessels have diffuse mild to moderate disease. 2. Mild impairment of global left ventricular systolic function. 3. Posterior basal hypokinesis. 4. Elevated left ventricular end-diastolic pressure (24 mmHg). 5. Left ventricular ejection fraction is estimated to be 45% to 50%. DISCUSSION AND RECOMMENDATIONS: Dual antiplatelet therapy is being continued. Statin therapy is being added. Beta blockers will be added as tolerated. Further recommendations will be based on hospital course. She has diabetes and acidosis. For this, we consulted the hospitalist service for management. Job ID: [id number] DocumentID: [id number] Dictated Date: 02/04/2020 16:19:08 Rock Drill Operator Date: 02/04/2020 23:01:59 Dictated By: MAT PEREIRA MD, MA, FACP, FACC,
[2020-02-05] VITALS (23 sets, daily range): BP systolic 93–181; BP diastolic 45–82
[2020-02-05] MEDS: POTASSIUM CL 10MEQ/50ML IVPB 50 ML IV SCH ×4 (01:42→05:44)
[2020-02-05] MEDS: 1/2 NS IV SOLUTION 1,000 ML IV SCH ×4 (03:01→16:34)
[2020-02-05 03:37] LABS: BASOPHILS % (AUTO) 0 % (0-10); EOSINOPHILS % (AUTO) 0 % (0-10); HEMATOCRIT 33 % (35-52); HEMOGLOBIN 11.4 G/DL (11.5-16.0); LYMPHOCYTES # (AUTO) 1.6 X 10^3 (1.0-4.0); LYMPHOCYTES % (AUTO) 16 % (12-44); MEAN CORPUSCULAR HEMOGLOBIN 31 PG (25-34); MEAN CORPUSCULAR HGB CONC 34 G/DL (32-36); MEAN CORPUSCULAR VOLUME 92 FL (80-99); MEAN PLATELET VOLUME 9.8 FL (7.4-10.4); MONOCYTES # (AUTO) 0.8 X 10^3 (0.0-1.0); MONOCYTES % (AUTO) 8 % (0-12); NEUTROPHILS # (AUTO) 7.8 X 10^3 (1.8-7.8); NEUTROPHILS % (AUTO) 77 % (42-75); PLATELET COUNT 166 10^3/uL (130-400); RED CELL DISTRIBUTION WIDTH 12.9 % (10.0-14.5); WHITE BLOOD COUNT 10.2 10^3/uL (4.3-11.0)
[2020-02-05] MEDS: D5 1/2 NS 1000 ML IV SOLUTION 1,000 ML IV SCH ×2 (03:47→08:18)
[2020-02-05 03:56] LABS: ALBUMIN 3.1 GM/DL (3.2-4.5); BILIRUBIN,TOTAL 0.4 MG/DL (0.1-1.0); CALCIUM 7.4 MG/DL (8.5-10.1); CREATININE SERUM 1.07 MG/DL (0.60-1.30); MAGNESIUM 1.8 MG/DL (1.6-2.4); PHOSPHORUS 2.1 MG/DL (2.3-4.7); POTASSIUM 4.2 MMOL/L (3.6-5.0); TOTAL PROTEIN 5.8 GM/DL (6.4-8.2)
[2020-02-05] MEDS: MAGNESIUM 1 GM/100 ML IVPB 100 ML IV SCH (04:01)
[2020-02-05] MEDS: KCL 20 MEQ TAB (K-DUR) PO SCH (04:01)
--- NOTE | 2020-02-05 04:07 | NUR ---
DR RUSHING NOTIFIED OF PT AM LABS. ORDERS RECEIVED TO CONTINUE DKA PROTOCOL, GIVE 10 UNITS OF LEVEMIR AT 0800 AND TURN OFF INSULIN DRIP AT 1100. NO LAB DRAWS NEEDED PER DR RUSHING.
[2020-02-05] MEDS: ENOXAPARIN 40 MG/0.4 ML (LOVENOX) SYR SC SCH (08:17)
[2020-02-05] MEDS: CLOPIDOGREL 75 MG (PLAVIX) TABLET PO SCH (08:17)
[2020-02-05] MEDS: PANTOPRAZOLE 40 MG (PROTONIX) TAB PO SCH (08:17)
[2020-02-05] MEDS: meTOprolol TARTRATE 25 MG (LOPRESSOR) TABLET PO SCH (08:18)
[2020-02-05] MEDS: ASPIRIN 81 MG CHEW (CHILDREN'S ASA) PO SCH (08:18)
--- NOTE | 2020-02-05 11:58 | Consultation - Hospitalist ---
HPI History of Present Illness: HPI/Chief Complaint Becky Sage is a 69-year-old female with past medical history of hypertension, hyperlipidemia, diabetes, hypothyroidism, who was admitted with STEMI. She reports that yesterday she was driving her car when she had vision trouble. She also reports feeling clammy and sweaty. She reports having abdom inal pain. She had some nausea and vomiting. She never had any chest pain. She denies any shoulder, arm, or jaw pain. She denies any shortness of breath. She denies any cough. She denies any diarrhea. She has a history of diabetes and takes oral medications for this. She says her doctor had told her that she might need to start taking insulin, but she was reluctant. She has no history of diabetic ketoacidosis. Source: patient Exam Limitations: no limitations Date Seen 02/05/20 Attending Physician Remedios Aguilera MD Facp Facc Ccds PCP No,Local Physician Referring Physician Date of Admission Home Medications & Allergies Home Medications Reviewed patient Home Medication Reconciliation performed by pharmacy medication reconciliations prior authorization technician and/or nursing. Patients Allergies have been reviewed. Allergies Allergies Coded Allergies nifedipine (Unverified Allergy, Mild, 10/13/08) Past Rlqhapd-Ulzsdm-Nfgxop Hx Past Med/Social Hx: Reviewed Nursing Past Med/Soc Hx Patient Social History Alcohol Use: Denies Use Recreational Drug Use: No Smoking Status: Unknown if Ever Smoked 2nd Hand Smoke Exposure: No Recent Foreign Travel: No Contact w/other who traveled: No Recent Hopitalizations: No Recent Infectious Disease Expo: No Past Medical History Surgeries: Abdominal, Gallbladder Cardiac: Hypertension Neurological: Vertigo : No Reproductive: No Gastrointestinal: Gall Bladder Disease Endocrine: Diabetes, Non-Insulin dep History of Blood Disorders: No Adverse Reaction to Blood Berg: No Family History Cardiovascular disease 19 FATHER G8 SISTER G8 BROTHER () Hypertension 19 FATHER 19 MOTHER G8 SISTER G8 BROTHER () Kidney disease G8 SISTER Review of Systems Constitutional: chills, malaise EENTM: blurred vision Respiratory: no symptoms reported Cardiovascular: no symptoms reported Gastrointestinal: abdominal pain, nausea, vomiting Genitourinary: no symptoms reported Musculoskeletal: no symptoms reported Skin: no symptoms reported Psychiatric/Neurological: No Symptoms Reported Physical Exam Physical Exam Vital Signs Vital Signs - First Documented 8/7/20 8/7/20 14:06 15:41 Temp 36.3 Pulse 36 Resp 16 B/P (MAP) 84/58 (67) Pulse Ox 100 O2 Delivery Room Air O2 Flow Rate 10.00 Capillary Refill : Less Than 3 Seconds Height, Weight, BMI Height: 4'11.00" Weight: 150lbs. oz. 68.966337sx; 27.00 BMI Method:Stated General Appearance: No Apparent Distress, WD/WN HEENT: PERRL/EOMI, Pharynx Normal Neck: Normal Inspection, Supple Respiratory: Lungs Clear, Normal Breath Sounds, No Respiratory Distress Cardiovascular: Regular Rate, Rhythm, No Edema, No Murmur Gastrointestinal: Normal Bowel Sounds, Non Tender, Soft Extremity: Normal Inspection, Non Tender, No Pedal Edema Neurologic/Psychiatric: Alert, Oriented x3, No Motor/Sensory Deficits, Normal Mood/Affect Skin: Normal Color, Warm/Dry Results Results/Procedures Labs Laboratory Tests 02/04/20 14:10 02/04/20 17:10 02/04/20 19:45 02/05/20 03:19 Patient resulted labs reviewed. Imaging: Reviewed Imaging Report Assessment/Plan Assessment and Plan Assess & Plan/Chief Complaint STEMI CAD HTN HLD Cardiology primary, appreciate consultation EKG on arrival showed STEMI Taken directly to the [facility] Underwent left heart catheterization with stent placement in the RCA Continue aspirin, Plavix, and metoprolol Continue Lipitor Type 2 diabetes mellitus with ketoacidosis Placed on DKA protocol Anion gap closed Blood sugars normalized Given Levemir 10 units this morning Discontinue insulin GTT Add sliding scale insulin Resume metformin Discontinue IV fluids Diabetic diet Hypothyroidism Continue levothyroxine Diagnosis/Problems Diagnosis/Problems (1) STEMI (ST elevation myocardial infarction) Status: Acute Qualifiers: Involved coronary artery: unspecified coronary artery Qualified Codes: I21.3 - ST elevation (STEMI) myocardial infarction of unspecified site (2) Diabetic ketoacidosis Status: Acute Qualifiers: Diabetes mellitus type: type 2 Diabetes mellitus complication detail: without coma Qualified Codes: E11.10 - Type 2 diabetes mellitus with ketoacidosis without coma Clinical Quality Measures AMI/AHF: ASA po Prior to arrival: No DVT/VTE Risk/Contraindication: Risk Factor Score Per Nursin RFS Level Per Nursing on Admit: 4+=Very High NITO RUSHING MD Feb 05, 2020 11:58
[2020-02-05] MEDS ORDERED: metFORMIN 500 MG (GLUCOPHAGE) TAB PO ONE (12:00)
[2020-02-05] MEDS: inSUlin ASPART (NovoLOG) 1 UNIT/0.01 ML (CHARGE PER UNIT) SC SCH ×3 (13:56→19:43)
--- NOTE | 2020-02-05 14:53 | Progress Note - Cardiology ---
Cardiology SOAP Progress Note Subjective: No cp or palp or syncope or shortness of breath at rest No n/v/d Gen weakness Objective: I&O/Vital Signs 02/05/20 02/05/20 02/05/20 02/05/20 03:00 03:04 03:56 04:00 Temp 37.0 Pulse 52 48 Resp 21 18 B/P (MAP) 96/58 (71) 105/61 (76) Pulse Ox 91 100 94 O2 Delivery Room Air Room Air Room Air 02/05/20 02/05/20 02/05/20 02/05/20 05:00 06:00 07:00 07:00 Pulse 49 52 47 50 Resp 23 25 20 B/P (MAP) 101/45 (63) 116/61 (79) 111/61 (78) Pulse Ox 94 95 93 O2 Delivery Room Air Room Air Room Air 02/05/20 02/05/20 02/05/20 02/05/20 08:00 08:00 08:19 09:00 Temp 36.7 Pulse 50 53 Resp 24 23 B/P (MAP) 112/67 (82) 132/69 (90) Pulse Ox 94 100 94 O2 Delivery Room Air Room Air Room Air 02/05/20 02/05/20 02/05/20 02/05/20 10:00 11:00 12:00 12:00 Pulse 59 58 64 Resp 26 9 B/P (MAP) 130/68 (88) 118/69 (85) 127/73 (91) Pulse Ox 97 96 96 100 O2 Delivery Room Air Room Air Room Air Room Air 02/05/20 02/05/20 02/05/20 12:42 13:00 14:00 Pulse 67 62 61 B/P (MAP) 130/68 (88) 133/65 (87) Pulse Ox 95 100 O2 Delivery Room Air Room Air 02/05/20 00:00 Intake Total 3640 ml Output Total 1650 ml Balance 1990 ml Weight (Pounds): 150 Weight (Calculated Kilograms): 68.388416 Constitutional: AAO x 3, well-developed, well-nourished Respiratory: No accessory muscle use; other (fair to good bilat air entry) Cardiovascular: regular rate-rhythm, S1 and S2, systolic murmur (soft BHAVANA at card base) Gastrointestional: soft; No guarding, No rebound; audible bowel sounds Extremities: No clubbing, No cyanosis, No significant edema Neurologic/Psychiatric: other (moves all limbs equally) Skin: No rash on exposed areas, No ulcerations on exposed areas Results/Procedures: Labs Laboratory Tests 02/04/20 15:45: Coronavirus 2019 (KIT) Negative 02/04/20 15:58: Glucometer 464*H 02/04/20 16:15: Urine Color YELLOW, Urine Clarity CLEAR, Urine pH 6.0, Urine Specific [place] <=1.005, Urine Protein NEGATIVE, Urine Glucose (UA) 3+H, Urine Ketones NEGATIVE, Urine Nitrite NEGATIVE, Urine Bilirubin NEGATIVE, Urine Urobilinogen 0.2, Urine Leukocyte Esterase NEGATIVE, Urine RBC (Auto) 2+H, Urine RBC 5-10H, Urine WBC RARE, Urine Crystals NONE, Urine Bacteria NEGATIVE, Urine Casts NONE, Urine Mucus NEGATIVE, Urine Culture Indicated NO 02/04/20 16:50: 02/04/20 16:55: Glucometer 420*H 02/04/20 17:10: Sodium Level 139, Potassium Level 4.9, Chloride Level 110H, Carbon Dioxide Level 13L, Anion Gap 16H, Blood Urea Nitrogen 17, Creatinine 1.15, Estimat Glomerular Filtration Rate 47, BUN/Creatinine Ratio 15, Glucose Level 386H, Calcium Level 8.2L 02/04/20 18:00: Glucometer 312H 02/04/20 18:57: Glucometer 316H 02/04/20 19:45: Sodium Level 140, Potassium Level 4.1, Chloride Level 113H, Carbon Dioxide Level 15L, Anion Gap 12, Blood Urea Nitrogen 17, Creatinine 1.06, Estimat Glomerular Filtration Rate 51, BUN/Creatinine Ratio 16, Glucose Level 232H, Calcium Level 7.7L 02/04/20 19:49: Glucometer 233H 02/04/20 20:48: Glucometer 283H 02/04/20 21:44: Glucometer 209H 02/04/20 22:41: Glucometer 263H 02/04/20 23:43: Glucometer 225H 02/05/20 00:49: Glucometer 213H 02/05/20 01:40: Glucometer 195H 02/05/20 02:47: Glucometer 160H 02/05/20 03:19: White Blood Count 10.2, Red Blood Count 3.64L, Hemoglobin 11.4L, Hematocrit 33L, Mean Corpuscular Volume 92, Mean Corpuscular Hemoglobin 31, Mean Corpuscular Hemoglobin Concent 34, Red Cell Distribution Width 12.9, Platelet Count 166, Me an Platelet Volume 9.8, Neutrophils (%) (Auto) 77H, Lymphocytes (%) (Auto) 16, Monocytes (%) (Auto) 8, Eosinophils (%) (Auto) 0, Basophils (%) (Auto) 0, Neutrophils # (Auto) 7.8, Lymphocytes # (Auto) 1.6, Monocytes # (Auto) 0.8, Eosinophils # (Auto) 0.0, Basophils # (Auto) 0.0, Sodium Level 137, Potassium Level 4.2, Chloride Level 114H, Carbon Dioxide Level 16L, Anion Gap 7, Blood Urea Nitrogen 16, Creatinine 1.07, Estimat Glomerular Filtration Rate 51, BUN/Creatinine Ratio 15, Glucose Level 142H, Calcium Level 7.4L, Corrected Calcium 8.1L, Phosphorus Level 2.1L, Magnesium Level 1.8, Total Bilirubin 0.4, Aspartate Amino Transf (AST/SGOT) 248H, Alanine Aminotransferase (ALT/SGPT) 172H , Alkaline Phosphatase 77, Total Protein 5.8L, Albumin 3.1L, Triglycerides Level 92, Cholesterol Level 104, LDL Cholesterol Direct 49, VLDL Cholesterol 18, HDL Cholesterol 41, Thyroid Stimulating Hormone (TSH) 1.19 02/05/20 03:41: Glucometer 156H 02/05/20 04:41: Glucometer 158H 02/05/20 05:42: Glucometer 139H 02/05/20 06:39: Glucometer 152H 02/05/20 08:14: Glucometer 145H 02/05/20 08:55: Glucometer 163H 02/05/20 09:54: Glucometer 134H 02/05/20 11:10: Glucometer 171H 02/05/20 11:57: Glucometer 194H Laboratory Tests 02/04/20 14:10 02/04/20 17:10 02/04/20 19:45 02/05/20 03:19 A/P: Assessment: Ac inf wall STEMI. Card cath of 02/04/20: subtotal prox RCA successfully stented with Alp Xience 3.0 x 23 stent, mild to mod plaque of the L cors, LVEF 45-50%, posterobasal hypokinesis DM with diabetic ketoacidosis H/o hyperlipidemia H/o hypothyroidism Plan: * Continue DAPT and statin * Increase BB * Statin * Monitor labs * Appreciated Dr Patiño's help Clinical Quality Measures AMI/AHF: ASA po Prior to arrival: MAT Whitt MD FACP FAC CCDS Feb 05, 2020 14:53
[2020-02-05] MEDS: DOPamine DRIP 250 ML IV SCH (15:08)
[2020-02-05] MEDS ORDERED: HOLD METFORMIN - RECEIVED CONTRAST 20 ML VIAL IV ONE (15:30)
[2020-02-05] MEDS ORDERED: metFORMIN 500 MG (GLUCOPHAGE) TAB PO SCH (17:00)
[2020-02-05] MEDS: meTOprolol TARTRATE 50 MG (LOPRESSOR) TAB PO SCH ×2 (19:43→20:44)
[2020-02-05] MEDS ORDERED: meTOprolol TARTRATE 25 MG (LOPRESSOR) TABLET PO ONE (20:45)
[2020-02-06] VITALS (11 sets, daily range): BP systolic 141–183; BP diastolic 65–88
[2020-02-06] MEDS ORDERED: meTOprolol TARTRATE 25 MG (LOPRESSOR) TABLET PO ONE (01:45)
[2020-02-06 02:51] LABS: BASOPHILS % (AUTO) 0 % (0-10); EOSINOPHILS # (AUTO) 0.1 10^3/uL (0.0-0.3); EOSINOPHILS % (AUTO) 1 % (0-10); HEMATOCRIT 36 % (35-52); HEMOGLOBIN 12.1 G/DL (11.5-16.0); LYMPHOCYTES # (AUTO) 2.1 X 10^3 (1.0-4.0); LYMPHOCYTES % (AUTO) 19 % (12-44); MEAN CORPUSCULAR HEMOGLOBIN 31 PG (25-34); MEAN CORPUSCULAR HGB CONC 34 G/DL (32-36); MEAN CORPUSCULAR VOLUME 92 FL (80-99); MEAN PLATELET VOLUME 10.4 FL (7.4-10.4); MONOCYTES # (AUTO) 0.8 X 10^3 (0.0-1.0); MONOCYTES % (AUTO) 7 % (0-12); NEUTROPHILS # (AUTO) 7.8 X 10^3 (1.8-7.8); NEUTROPHILS % (AUTO) 73 % (42-75); PLATELET COUNT 152 10^3/uL (130-400); RED CELL DISTRIBUTION WIDTH 13.3 % (10.0-14.5); WHITE BLOOD COUNT 10.7 10^3/uL (4.3-11.0)
[2020-02-06 03:17] LABS: ALBUMIN 3.6 GM/DL (3.2-4.5); BILIRUBIN,TOTAL 0.6 MG/DL (0.1-1.0); CALCIUM 8.3 MG/DL (8.5-10.1); CREATININE SERUM 0.92 MG/DL (0.60-1.30); PHOSPHORUS 2.5 MG/DL (2.3-4.7); POTASSIUM 3.9 MMOL/L (3.6-5.0); TOTAL PROTEIN 6.5 GM/DL (6.4-8.2)
[2020-02-06] MEDS: MAGNESIUM 1 GM/100 ML IVPB 100 ML IV SCH (03:25)
[2020-02-06] MEDS: POTASSIUM CL 10MEQ/50ML IVPB 50 ML IV SCH (03:25)
[2020-02-06] MEDS: KCL 20 MEQ TAB (K-DUR) PO SCH (03:25)
[2020-02-06] MEDS: inSUlin ASPART (NovoLOG) 1 UNIT/0.01 ML (CHARGE PER UNIT) SC SCH ×2 (04:38→10:55)
[2020-02-06] MEDS ORDERED: LEVOTHYROXINE 50 MCG (LEVOTHROID) TAB PO ONE (06:30)
[2020-02-06] MEDS: PANTOPRAZOLE 40 MG (PROTONIX) TAB PO SCH (08:21)
[2020-02-06] MEDS: meTOprolol TARTRATE 50 MG (LOPRESSOR) TAB PO SCH (08:21)
[2020-02-06] MEDS: ASPIRIN 81 MG CHEW (CHILDREN'S ASA) PO SCH (08:21)
[2020-02-06] MEDS: CLOPIDOGREL 75 MG (PLAVIX) TABLET PO SCH (08:21)
[2020-02-06] MEDS: ENOXAPARIN 40 MG/0.4 ML (LOVENOX) SYR SC SCH (08:22)
[2020-02-06] MEDS: DOPamine DRIP 250 ML IV SCH (10:36)
[2020-02-06] MEDS ORDERED: INSU100I10 SQ (11:02)
--- NOTE | 2020-02-06 11:48 | Progress Note - Hospitalist ---
Subjective HPI/CC On Admission Date Seen by Provider: Feb 06, 2020 Time Seen by Provider: 09:50 Becky Sage is a 69-year-old female with past medical history of hypertension, hyperlipidemia, diabetes, hypothyroidism, who was admitted with STEMI. She reports that yesterday she was driving her car when she had vision trouble. She also reports feeling clammy and sweaty. She reports having abdominal pain. She had some nausea and vomiting. She never had any chest pain. She denies any shoulder, arm, or jaw pain. She denies any shortness of breath. She denies any cough. She denies any diarrhea. She has a history of diabetes and takes oral medications for this. She says her doctor had told her that she might need to start taking insulin, but she was reluctant. She has no history of diabetic ketoacidosis. Subjective/Events-last exam She is doing well this morning. She has been up walking in the halls. She is sitting in her bedside chair now. She has been eating and drinking. She denies any chest pain. She denies any trouble breathing. She denies any abdominal pain, nausea, or vomiting. We discussed that she will need to use insulin on discharge. She expressed understanding and will follow-up with her PCP for titration of insulin dose. Objective Exam Vital Signs Vital Signs Date Time Temp Pulse Resp B/P (MAP) Pulse Ox O2 Delivery O2 Flow Rate FiO2 02/06/20 09:00 63 141/78 (99) 95 Room Air 02/06/20 08:00 37.2 02/06/20 06:00 16 02/04/20 19:00 2.00 Capillary Refill : Less Than 3 Seconds General Appearance: No Apparent Distress, WD/WN Respiratory: Lungs Clear, Normal Breath Sounds, No Respiratory Distress Cardiovascular: Regular Rate, Rhythm, No Edema, No Murmur Gastrointestinal: Normal Bowel Sounds, Non Tender, Soft Extremity: Normal Inspection, Non Tender, No Pedal Edema Neurologic/Psychiatric: Alert, Oriented x3, No Motor/Sensory Deficits, Normal M ood/Affect Skin: Normal Color, Warm/Dry Results/Procedures Lab Laboratory Tests 02/06/20 02:28 Patient resulted labs reviewed. Assessment/Plan Assessment and Plan Assess & Plan/Chief Complaint STEMI CAD HTN HLD Cardiology primary Underwent left heart catheterization with stent placement in the RCA Continue aspirin, Plavix, metoprolol, and Lipitor Type 2 diabetes mellitus with ketoacidosis Continue Levemir 10 units daily, transition to Lantus on discharge Continue metformin and empagliflozin Discontinue glyburide Hypothyroidism Continue levothyroxine Diagnosis/Problems Diagnosis/Problems (1) STEMI (ST elevation myocardial infarction) Status: Acute Qualifiers: Involved coronary artery: unspecified coronary artery Qualified Codes: I21.3 - ST elevation (STEMI) myocardial infarction of unspecified site (2) Diabetic ketoacidosis Status: Acute Qualifiers: Diabetes mellitus type: type 2 Diabetes mellitus complication detail: without coma Qualified Codes: E11.10 - Type 2 diabetes mellitus with ketoacidosis without coma Clinical Quality Measures AMI/AHF: ASA po Prior to arrival: No DVT/VTE Risk/Contraindication: Risk Factor Score Per Nursin RFS Level Per Nursing on Admit: 4+=Very High NITO RUSHING MD Feb 06, 2020 11:48
[2020-02-06] MEDS ORDERED: ASPI-999 PO (14:35)
[2020-02-06] MEDS ORDERED: METO100T6 PO (14:35)
[2020-02-06] MEDS ORDERED: CLOP75TA28 PO (14:35)
--- NOTE | 2020-02-06 14:36 | Discharge Inst-Cardiology ---
Discharge Inst-Cardiac Discharge Medications New Medications: Insulin Glargine,Hum.rec.anlog (Lantus Solostar) 100 Unit/1 Ml Insuln.pen 10 UNIT SQ DAILY for 30 Days, #3 EA Metoprolol Succinate (Toprol Xl) 100 Mg Tab.er.24h 100 MG PO DAILY for 90 Days, #90 TAB 3 Refills Aspirin (Aspirin) 81 Mg Tab.chew 81 MG PO DAILY, #90 TAB 3 Refills Clopidogrel Bisulfate (Clopidogrel) 75 Mg Tablet 75 MG PO DAILY, #90 TAB 3 Refills Continued Medications: Enalapril Maleate (Vasotec) 20 Mg Tablet Hydrocodone Bit/Acetaminophen (Vicodin 5-500 Tablet) 1 Each Tablet 1 - 2 EACH PO Q4HR PRN, #20 0 Refills PRN PAIN Levothyroxine Sodium (Levoxyl) 50 Mcg Tablet Metformin Hcl (Glucophage) 1,000 Mg Tablet Simvastatin (Simvastatin) 10 Mg Tablet Discontinued Medications: Carvedilol (Coreg) 12.5 Mg Tablet Cefdinir (Cefdinir) 300 Mg Capsule 300 MG PO BID for FOR INFECTION, #20 CAP Ciprofloxacin HCl (Ciprofloxacin HCl) 2.5 Ml Drops 2.5 ML OP UD for 7 Days, #1 DROPS 2 DROPS TO AFFECTED EYE EVERY 2 HOURS WHILE AWAKE FOR FIRST 2 DAYS, THEN Q 4 HOURS WHILE AWAKE FOR A TOTAL OF 7 DAYS Glyburide (Glyburide) 2.5 Mg Tablet Hydrochlorothiazide (Hctz) 12.5 Mg Cap Meclizine HCl (Antivert) 25 Mg Tablet 25 MG PO Q4H, #30 TAB Ondansetron (Zofran Odt) 4 Mg Tab.rapdis 4 MG PO Q4H for Nausea/Vomiting, #10 TAB Penicillin V Potassium (Veetids 500) 500 Mg Tablet 500 MG PO BID, #10 0 Refills Orders-Post D/C & Referrals Pneu Vac Indicated: Yes MAT PEREIRA MD FACP FAC CCDS Feb 06, 2020 14:35
--- NOTE | 2020-02-06 14:37 | Discharge Inst-Post CATH ---
Discharge Inst-CATH/EP Post Cardiac Cath/EP D/C Inst Follow Up/Plan F/u with primary care physician within this week for treatment of diabetes F/u with Dr Aguilera in 1-2 weeks ACTIVITY * Go Home directly and rest. * Limit activity of the leg (or wrist if it was used) for 7 days including aerobics, swimming, jogging, bicycling, etc. * Restrict stair-climbing for 7 days if possible, if not, climb up with your non-cath leg, then bring together on the same step. * Avoid lifting, pushing, pulling or excessive movement of the affected extremity for 7 days. * Customary sexual activity may be resumed after 2 days-use caution not to use a position that strains or causes pain to the affected extremity. * No driving for 24 hours. * NO SMOKING. * Avoid straining for bowel movements for 7 days. * Gentle walking on level ground is allowed. * Returning to work will depend on the type of procedure and the results. Your doctor will discuss this with you. CALL YOUR DOCTOR FOR ANY OF THE FOLLOWING: *If bleeding from the puncture site occurs- Apply gentle pressure to site with clean cloth and call your doctor or EMS. * If a knot or lump forms under the skin, increases in size, or causes pain. * If bruising appears to be worsening or moving further down your leg instead of disappearing. * Temperature above 101 F. CARE OF YOUR GROIN INCISION; * Bruising or purple discoloration of the skin near the puncture site is common. * You may shower only, no bathtub bathing for 5 days. Be careful to avoid slipping as your leg may feel stiff. * If a closure device was used on your femoral artery, please see the attached guide regarding care of the device and your leg. * Leave dressing on FOR 24 hours. CARE OF YOUR WRIST INCISION; * Bruising or purple discoloration of the skin near the puncture site is common. * You may shower. * DO NOT submerge wrist. * Leave dressing on FOR 24 hours. MAT AGUILERA MD FACP [facility] CCDS Feb 06, 2020 14:37
--- NOTE | 2020-02-06 14:45 | Progress Note - Cardiology ---
Cardiology SOAP Progress Note Subjective: No cp or palp or syncope or shortness of breath No n/v/d No groin or leg discomfort No focal weakness Wishes to go home Objective: I&O/Vital Signs 02/06/20 02/06/20 02/06/20 02/06/20 03:00 03:48 04:00 04:21 Temp 36.6 Pulse 69 69 Resp 16 18 B/P (MAP) 171/79 (109) 146/65 (92) Pulse Ox 95 100 97 O2 Delivery Room Air Room Air Room Air 02/06/20 02/06/20 02/06/20 02/06/20 05:00 06:00 07:00 07:00 Pulse 77 70 62 62 Resp 18 16 B/P (MAP) 180/84 (116) 153/88 (109) 156/77 (103) Pulse Ox 94 97 97 O2 Delivery Room Air Room Air Room Air 02/06/20 02/06/20 02/06/20 02/06/20 08:00 08:00 08:00 09:00 Temp 37.2 Pulse 67 63 B/P (MAP) 155/77 (103) 141/78 (99) Pulse Ox 100 96 95 O2 Delivery Room Air Room Air Room Air 02/06/20 02/06/20 12:00 13:00 Pulse 67 Pulse Ox 100 O2 Delivery Room Air 02/06/20 00:00 Intake Total 1250 ml Output Total 1900 ml Balance -650 ml Weight (Pounds): 150 Weight (Calculated Kilograms): 68.547956 Constitutional: AAO x 3, well-developed, well-nourished Respiratory: No accessory muscle use; other (fair to good bilat air entry) Cardiovascular: regular rate-rhythm, S1 and S2, systolic murmur (soft BHAVANA at card base) Gastrointestional: soft; No guarding, No rebound; audible bowel sounds Extremities: No clubbing, No cyanosis, No significant edema Neurologic/Psychiatric: other (moves all limbs equally) Skin: No rash on exposed areas, No ulcerations on exposed areas Results/Procedures: Labs Laboratory Tests 02/05/20 16:41: Glucometer 137H 02/05/20 19:43: Glucometer 156H 02/06/20 02:28: White Blood Count 10.7, Red Blood Count 3.87L, Hemoglobin 12.1, Hematocrit 36, Mean Corpuscular Volume 92, Mean Corpuscular Hemoglobin 31, Mean Corpuscular Hemoglobin Concent 34, Red Cell Distribution Width 13.3, Platelet Count 152, Mean Platelet Volume 10.4, Neutrophils (%) (Auto) 73, Lymphocytes (%) (Auto) 19, Monocytes (%) (Auto) 7, Eosinophils (%) (Auto) 1, Basophils (%) (Auto) 0, Neutrophils # (Auto) 7.8, Lymphocytes # (Auto) 2.1, Monocytes # (Auto) 0.8, Eosinophils # (Auto) 0.1, Basophils # (Auto) 0.0, Sodium Level 139, Potassium Level 3.9, Chloride Level 115H, Carbon Dioxide Level 16L, Anion Gap 8, Blood Urea Nitrogen 13, Creatinine 0.92, Estimat Glomerular Filtration Rate 60, BUN/Creatinine Ratio 14, Glucose Level 152H, Calcium Level 8.3L, Corrected Calcium 8.6, Phosphorus Level 2.5, Magnesium Level 1.8, Total Bilirubin 0.6, Aspartate Amino Transf (AST/SGOT) 115H, Alanine Aminotransferase (ALT/SGPT) 132H , Alkaline Phosphatase 80, Total Protein 6.5, Albumin 3.6 02/06/20 10:27: Glucometer 231H Microbiology 02/04/20 MRSA Screen - Final, Complete MRSA not isolated Laboratory Tests 02/04/20 17:10 02/04/20 19:45 02/05/20 03:19 02/06/20 02:28 A/P: Assessment: Ac inf wall STEMI. Card cath of 02/04/20: subtotal prox RCA successfully stented with Alp Xience 3.0 x 23 stent, mild to mod plaque of the L cors, LVEF 45-50%, posterobasal hypokinesis DM with diabetic ketoacidosis, treated with iv insulin and iv fluids during this hospitalization H/o hyperlipidemia H/o hypothyroidism Plan: * Continue DAPT (aspirin and clopidogrel) and statin and beta-shreya * Resume CHANTAL-inhib * D/c HCTZ because she had presented with eGFR 37 and now eGFR 60 (after hydration). HCTZ appears to have been contributing to intravascular volume depletion * Insulin added to regimen during this hospitalization due to presentation with diabetic ketoacidosis * Metformin held for 48 hours after card cath, now being resumed * We had a long and detailed discussion regarding her CV and diabetic issues during this hospitalization. Questions answered * Close outpt f/u advised with pcp, especially for close management of diabetes mellitus * Cardiac f/u advised * We reviewed and discussed the rationale for all or her meds, their pros and cons, and the importance of compliance Clinical Quality Measures AMI/AHF: ASA po Prior to arrival: MAT Whitt MD FACP FAC CCDS Feb 06, 2020 14:45
--- NOTE | 2020-02-06 14:51 | Cardiology Discharge Summary ---
Diagnosis/Chief Complaint Date of Admission 02/04/20 Date of Discharge 02/06/20 Final/Discharge Diagnosis Ac inf wall STEMI. Card cath of 02/04/20: subtotal prox RCA successfully stented with Alp Xience 3.0 x 23 stent, mild to mod plaque of the L cors, LVEF 45-50%, posterobasal hypokinesis DM with diabetic ketoacidosis, treated with iv insulin and iv fluids during this hospitalization H/o hyperlipidemia H/o hypothyroidism COVID-19 negative on the test of 02/04/20 Chief Complaint/HPI Chief Complaint/HPI CC: Gen malaise, abdominal discomfort HPI: 69 yo woman with h/o DM who suddenly felt unwell while driving her car, called EMS, blood sugar found to high (immeasurable), brought to ER, fond to have inf wall STEMI with severe bradycardia and hypotension. Had abd pain and nausea after presentation. We proceeded with emergency cath. Was exhibiting complete heart block and hypotension on the lab tech; treated with iv atropine and epinephrine. Found to have subtotal prox RCA occlusion; treated with balloon angioplasty (DBT 43 min) and subsequent cor stenting. Now feeling better. Does not report cough, fever, or chills. Had had some shortness of breath with cp, now better Hosp course and discharge instructions: Continue DAPT (aspirin and clopidogrel) and statin and beta-shreya Resume CHANTAL-inhib D/c HCTZ because she had presented with eGFR 37 and now eGFR 60 (after hydration). HCTZ appears to have been contributing to intravascular volume depletion Insulin added to regimen during this hospitalization due to presentation with diabetic ketoacidosis Metformin held for 48 hours after card cath, now being resumed We had a long and detailed discussion regarding her CV and diabetic issues during this hospitalization. Questions answered Close outpt f/u advised with pcp, especially for close management of diabetes mellitus Cardiac f/u advised We reviewed and discussed the rationale for all or her meds, their pros and cons, and the importance of compliance Please refer to our progress note of the same date (02/06/20) for condition at discharge Discharge Summary Hospital Course Pending Labs Laboratory Tests 02/06/20 10:27: Glucometer 231 Discussion & Recommendations Home Medications Reviewed patient Home Medication Reconciliation performed by pharmacy medication reconciliations planning technician and/or nursing. Patients Allergies have been reviewed. Discharge Home Medications: Reviewed and agree with Discharge Medication list on patient's Discharge Instruction sheet Instructions to patient/family F/u with primary care physician within this week for treatment of diabetes F/u with Dr Aguilera in 1-2 weeks Clinical Quality Measures AMI/AHF: ASA po Prior to arrival: No DVT/VTE Risk/Contraindication: Risk Factor Score Per Nursin RFS Level Per Nursing on Admit: 4+=Very High MAT AGUILERA MD [facility] CCDS Feb 06, 2020 14:51
== END 2020-02-06 15:00 | disposition home or self-care (01) ==
LOC: EDUNIT# 14:06 → ER 14:08 → CATH 14:15 → ICU 15:35 → CATH 02-06 15:00
PROVIDERS: ATTEND Internal Medicine Cardiovascular Disease
DX: I21.3 ST elevation (STEMI) myocardial infarction of unspecified site (principal); I44.2 Atrioventricular block, complete; I10 Essential (primary) hypertension; E78.5 Hyperlipidemia, unspecified; E03.9 Hypothyroidism, unspecified; I25.10 Atherosclerotic heart disease of native coronary artery without angina pectoris; E11.10 Type 2 diabetes mellitus with ketoacidosis without coma; Z79.899 Other long term (current) drug therapy; Z88.8 Allergy status to other drugs, medicaments and biological substances; Z20.828 Contact with and (suspected) exposure to other viral communicable diseases
CPT/HCPCS: 51702; 80048; 80053 ×2; 81000; 82010; 82962 ×2; 83036; 83735 ×2; 83874; 83880; 84100; 84484; 85025 ×2; 85610; 85730; 87081; 93005 ×2; 93041; 93458; 99291; C1725; C1760; C1769; C1874; C1887; C1894; C9606; U0002; 36415; 87635

== ENCOUNTER 2020-05-15 21:40 | Emergency (ER) | payer MEDICARE ==
[~2020-05-15] VITALS: Ht 149 cm; Wt 58.0 kg
[~2020-05-15 21:40] MED LIST changes: +ASPI-999 PO; -CIPR2.5D2 OP; +CIPR2.5D3 OP; +CLOP75TA28 PO; +INSU100I10 SQ; +METO100T6 PO
--- NOTE | 2020-05-15 21:55 | NUR ---
Pt here with right upper arm pain; states onset was 2 wks ago while lifting a blanket. Reports the pain as throbbing in nature; this pain is reproducible with movement and palpation. Pt did have an MN 2 months ago with a stent placed. Pt is concerned this may be cardiac related. IV and labs drawn. ECG obtained. Dr. Velasco to room for eval and orders placed.
[2020-05-15] MEDS ORDERED: ASPIRIN 81 MG CHEW (CHILDREN'S ASA) PO ONE (22:00)
[2020-05-15 22:06] LABS: BASOPHILS % (AUTO) 0 % (0-10); EOSINOPHILS # (AUTO) 0.1 10^3/uL (0.0-0.3); EOSINOPHILS % (AUTO) 2 % (0-10); HEMATOCRIT 36 % (35-52); LYMPHOCYTES # (AUTO) 2.3 10^3/uL (1.0-4.0); LYMPHOCYTES % (AUTO) 33 % (12-44); MEAN CORPUSCULAR HEMOGLOBIN 31 pg (25-34); MEAN CORPUSCULAR HGB CONC 33 g/dL (32-36); MEAN CORPUSCULAR VOLUME 93 fL (80-99); MEAN PLATELET VOLUME 9.1 fL (9.0-12.2); MONOCYTES # (AUTO) 0.4 10^3/uL (0.0-1.0); MONOCYTES % (AUTO) 6 % (0-12); NEUTROPHILS # (AUTO) 4.1 10^3/uL (1.8-7.8); NEUTROPHILS % (AUTO) 59 % (42-75); PLATELET COUNT 211 10^3/uL (130-400)
--- NOTE | 2020-05-15 22:06 | ED Upper Extremity ---
General Chief Complaint: Upper Extremity Stated Complaint: RIGHT ARM PAIN Nursing Triage Note: Pt here with right upper arm pain x 2 wks; pain is reproducible with movement and palpation. Onset of pain was while lifting blanket. Nursing Sepsis Screen: No Definite Risk Source: patient Exam Limitations: no limitations History of Present Illness Date Seen by Provider: May 15, 2020 Time Seen by Provider: 21:40 Initial Comments Patient presents to the ER by private conveyance from home with chief complaint that for the past 2 weeks she has been experiencing some dull progressively worsening pain in her right shoulder. She says it started when she was lifting over her head putting some blankets away and she felt a sharp pain. It was not bad until just a couple days ago and it is mounted. He had a heart attack about a month ago and a stent was placed. Her comedian Dr. Aguilera and she sees primary care through the department of affairs in [place], [place]. She is not having any chest pain nausea sweats or chills but she does have diabetes, h ypertension, hyperlipidemia. She does not smoke. She did not think this was her heart and does not think it felt the same as when she had her heart attack but her daughter thought she needed to come be checked out just the same. No history of surgery or other major trauma to her right shoulder. She forgot to take her blood pressure medicines today but did take them before coming by EMS. ST [facility] from 02/04/[address] Aguilera. Balloon angioplasty and a stent was placed. She has diffuse mild to moderate coronary disease otherwise. Mild impairment of global left ventricular systolic function and posterior basal hypokinesis with elevated left ventricular end-diastolic pressure 24 mmHg and an EF estimated to be 45-50%. Allergies and Home Medications Allergies Coded Allergies: nifedipine (Unverified Allergy, Mild, 10/13/08) Home Medications Aspirin 81 Mg Tab.chew, 81 MG PO DAILY Prescribed by: MAT AGUILERA on 02/06/20 1435 Clopidogrel Bisulfate 75 Mg Tablet, 75 MG PO DAILY Prescribed by: MAT AGUILERA on 02/06/20 1435 Cyclobenzaprine HCl 10 Mg Tablet, 10 MG PO Q8H PRN for SPASMS Prescribed by: SELENE MUÑOZ on 05/15/20 6158 Hydrocodone Bit/Acetaminophen 1 Each Tablet, 1-2 EACH PO Q4HR PRN PRN PAIN Prescribed by: LIYA CASILLAS on 10/14/08 0057 Insulin Glargine,Hum.rec.anlog 100 Unit/1 Ml Insuln.pen, 10 UNIT SQ DAILY Prescribed by: NITO RUSHING on 02/06/20 1102 Metoprolol Succinate 100 Mg Tab.er.24h, 100 MG PO DAILY Prescribed by: MAT AGUILERA on 02/06/20 1435 Patient Home Medication List Home Medication List Reviewed: Yes Review of Systems Constitutional: No chills, No fever EENTM: No ear discharge, No ear pain Respiratory: No cough, No short of breath Cardiovascular: No chest pain, No edema; Hx of Intervention; No palpitations, No syncope Gastrointestinal: No abdominal pain, No nausea, No vomiting Genitourinary: No discharge, No dysuria Musculoskeletal: see HPI; No back pain; joint pain All Other Systems Reviewed Negative Unless Noted: Yes Past Sfnlksj-Zfmstn-Mgmctl Hx Patient Social History Alcohol Use: Denies Use Recreational Drug Use: No Smoking Status: Never a Smoker 2nd Hand Smoke Exposure: No Recent Foreign Travel: No Contact w/Someone Who Travel: No Recent Infectious Disease Expo: No Recent Hopitalizations: No Past Medical History Surgeries: Yes (HERNIA REPAIR) Abdominal, Gallbladder Respiratory: No Cardiac: Yes Hypertension Neurological: Yes (MENIERE'S / VERTIGO) Vertigo Reproductive Disorders: No Genitourinary: No Gastrointestinal: No (S/P SUSAN) Gall Bladder Disease Musculoskeletal: Yes (LEFT SHOULDER FX. LEFT KNEE FX--NO SURGERIES) Endocrine: Yes Diabetes, Non-Insulin dep HEENT: No Cancer: No Psychosocial: No Integumentary: No Blood Disorders: No Adverse Reaction/Blood Tranf: No Family Medical History Cardiovascular disease 19 FATHER G8 SISTER G8 BROTHER () Hypertension 19 FATHER 19 MOTHER G8 SISTER G8 BROTHER () Kidney disease G8 SISTER Physical Exam Vital Signs Vital Signs - First Documented 05/15/20 21:51 Temp 36.7 Pulse 77 Resp 18 B/P (MAP) 209/97 (134) Pulse Ox 100 O2 Delivery Room Air Capillary Refill : Less Than 3 Seconds Height, Weight, BMI Height: 4'11.00" Weight: 150lbs. oz. 68.050510it; 26.00 BMI Method:Stated General Appearance: WD/WN, no apparent distress HEENT: PERRL/EOMI, normal ENT inspection, TMs normal, pharynx normal Neck: non-tender, full range of motion, supple, normal inspection Cardiovascular: normal peripheral pulses, regular rate, rhythm Respiratory: lungs clear, normal breath sounds, no respiratory distress, no accessory muscle use Gastrointestinal: normal bowel sounds, non tender Shoulder: normal inspection, limited ROM (Limited abduction of the shoulder and with tenderness to palpation over the supraspinatus and weakness with loading of the supraspinatus on her right shoulder. No joint crepitus in the glenohumeral joint. No pain over the acromioclavicular joint on palpation. Her other rotator cuff muscles are nontender on examination.) Progress/Results/Core Measures Results/Orders Lab Results Laboratory Tests Test 05/15/20 22:00 Range/Units White Blood Count 7.0 4.3-11.0 10^3/uL Red Blood Count 3.92 3.80-5.11 10^6/uL Hemoglobin 12.0 11.5-16.0 g/dL Hematocrit 36 35-52 % Mean Corpuscular Volume 93 80-99 fL Mean Corpuscular Hemoglobin 31 25-34 pg Mean Corpuscular Hemoglobin Concent 33 32-36 g/dL Red Cell Distribution Width 12.8 10.0-14.5 % Platelet Count 211 130-400 10^3/uL Mean Platelet Volume 9.1 9.0-12.2 fL Immature Granulocyte % (Auto) 0 % Neutrophils (%) (Auto) 59 42-75 % Lymphocytes (%) (Auto) 33 12-44 % Monocytes (%) (Auto) 6 0-12 % Eosinophils (%) (Auto) 2 0-10 % Basophils (%) (Auto) 0 0-10 % Neutrophils # (Auto) 4.1 1.8-7.8 10^3/uL Lymphocytes # (Auto) 2.3 1.0-4.0 10^3/uL Monocytes # (Auto) 0.4 0.0-1.0 10^3/uL Eosinophils # (Auto) 0.1 0.0-0.3 10^3/uL Basophils # (Auto) 0.0 0.0-0.1 10^3/uL Immature Granulocyte # (Auto) 0.0 0.0-0.1 10^3/uL Prothrombin Time 12.8 12.2-14.7 SEC INR Comment 0.9 0.8-1.4 Activated Partial Thromboplast Time 28 24-35 SEC Sodium Level 143 135-145 MMOL/L Potassium Level 3.9 3.6-5.0 MMOL/L Chloride Level 105 98-107 MMOL/L Carbon Dioxide Level 24 21-32 MMOL/L Anion Gap 14 5-14 MMOL/L Blood Urea Nitrogen 21 H 7-18 MG/DL Creatinine 1.07 0.60-1.30 MG/DL Estimat Glomerular Filtration Rate 51 BUN/Creatinine Ratio 20 Glucose Level 183 H 70-105 MG/DL Calcium Level 9.0 8.5-10.1 MG/DL Corrected Calcium 8.8 8.5-10.1 MG/DL Magnesium Level 2.1 1.6-2.4 MG/DL Total Bilirubin 0.3 0.1-1.0 MG/DL Aspartate Amino Transf (AST/SGOT) 22 5-34 U/L Alanine Aminotransferase (ALT/SGPT) 19 0-55 U/L Alkaline Phosphatase 84 40-136 U/L Myoglobin 34.1 10.0-92.0 NG/ML Troponin I < 0.028 <0.028 NG/ML Total Protein 7.7 6.4-8.2 GM/DL Albumin 4.2 3.2-4.5 GM/DL My Orders Orders - SELENE MUÑOZ Cbc With Automated Diff (05/15/20 21:53) Magnesium (05/15/20 21:53) Chest 1 View, Ap/Pa Only (05/15/20 21:53) Ekg Tracing (05/15/20 21:53) Comprehensive Metabolic Panel (05/15/20 21:53) Myoglobin Serum (05/15/20 21:53) Protime With Inr (05/15/20 21:53) Partial Thromboplastin Time (05/15/20 21:53) O2 (05/15/20 21:53) Monitor-Rhythm Ecg Trace Only (05/15/20 21:53) Lipid Panel (05/16/20 06:00) Ed Iv/Invasive Line Start (05/15/20 21:53) Troponin I (05/15/20 21:53) Aspirin Chewable Tablet (Baby Aspirin Ch (05/15/20 22:00) Medications Given in ED Current Medications Medications Dose Ordered Sig/John Route Start Time Stop Time Status Last Admin Dose Admin Aspirin 324 mg ONCE ONCE PO 05/15/20 22:00 05/15/20 22:01 DC 05/15/20 22:11 324 MG Vital Signs/I&O 05/15/20 05/15/20 21:51 22:43 Temp 36.7 Pulse 77 61 Resp 18 B/P (MAP) 209/97 (134) 178/82 Pulse Ox 100 99 O2 Delivery Room Air Room Air Blood Pressure Mean: 134 Progress Progress Note : Time: 22:04 Progress Note Low suspicion for coronary because of her significant risk factors we can rule this out with a single troponin after 2 weeks of consistent pain. The pain does not go away. She does appear to have muscle skeletal weakness. We are going to recommend she go back to her primary care doctor for continued management as well as a referral to physical therapy locally. Just to be cautious we will give her a dose of aspirin while we are waiting on her labs. Her blood pressure is si gnificantly elevated but she forgot to take her blood pressure medicines today. She says she took them just before coming by ambulance. Plan to just observe her blood pressure for now. Initial ECG Impression Date: May 15, 2020 Initial ECG Impression Time: 21:58 Initial ECG Rate: 67 Initial ECG Rhythm: Normal Sinus Initial ECG Intervals: Normal Initial ECG Impression: Normal Comment Normal sinus rhythm without clinically relevant ST elevation or depression. Diagnostic Imaging Diagonstic Imaging: Xray Plain Films/CT/US/NM/MRI: chest Comments No acute cardiopulmonary processes. No acute osseous abnormality noted on one view chest x-ray. Reviewed: Reviewed by Me Departure Impression Primary Impression: Supraspinatus syndrome of right shoulder Disposition: 01 HOME, SELF-CARE Condition: Stable Departure-Patient Inst. Decision time for Depature: 22:55 Referrals: MAT AGUILERA MD FACP FAC CCDS NO,LOCAL PHYSICIAN (PCP) Primary Care Physician Patient Instructions: Rotator Cuff Injury (DC), Rotator Cuff Tear Exercises Add. Discharge Instructions: Tylenol 650 mg every 6 hours as necessary for pain. Topical creams such as icy hot, Biofreeze or creams with capsaicin oil as necessary. Warm, moist heat applied to complete your shoulder can be helpful as necessary. Call [facility] for a physical therapy consultation at [phone] tomorrow. You may also follow-up with your primary care doctor for further evaluation and management of your right shoulder pain. If your shoulder goes into spasm you may take one tablet of cyclobenzaprine every 8 hours as necessary. Cyclobenzaprine will cause drowsiness and can be cut in half if you are too groggy. All discharge instructions reviewed with patient and/or family. Voiced understanding. Scripts Cyclobenzaprine HCl (Cyclobenzaprine HCl) 10 Mg Tablet 10 MG PO Q8H PRN for SPASMS, #15 TAB 0 Refills Prov: SELENE MUÑOZ 05/15/20 SELENE MUÑOZ May 15, 2020 22:06
[2020-05-15 22:17] LABS: ALBUMIN 4.2 GM/DL (3.2-4.5); INR 0.9 (0.8-1.4); PROTHROMBIN TIME PATIENT 12.8 SEC (12.2-14.7)
[2020-05-15 22:18] LABS: POTASSIUM 3.9 MMOL/L (3.6-5.0)
[2020-05-15 22:20] LABS: TOTAL PROTEIN 7.7 GM/DL (6.4-8.2)
[2020-05-15 22:22] LABS: BILIRUBIN,TOTAL 0.3 MG/DL (0.1-1.0)
[2020-05-15 22:24] LABS: CREATININE SERUM 1.07 MG/DL (0.60-1.30)
[2020-05-15 22:26] LABS: MAGNESIUM 2.1 MG/DL (1.6-2.4)
--- NOTE | 2020-05-15 22:42 | NUR ---
X-ray here for portable.
[2020-05-15] MEDS ORDERED: CYCL10TA9 PO (22:57)
[2020-05-15 23:13] VITALS: BP 150/65
--- NOTE | 2020-05-16 05:44 | Diagnostic Imaging Report ---
Portable erect AP chest at 1040 hours. INDICATION: Chest pain. FINDINGS: The heart size is at the upper limits of normal but the heart does seem somewhat less prominent than noted on the prior exam of 04/29/2017. The lungs are clear. There is no evidence for failure, pneumonia or for pleural effusion. The mediastinum is not widened. The osseous structures are intact. IMPRESSION: There is no evidence for active disease. Dictated by: Dictated on workstation # [id number]
== END 2020-05-15 23:14 | disposition home or self-care (01) ==
LOC: EDUNIT# 21:40 → ER 21:41
DX: M75.111 Incomplete rotator cuff tear or rupture of right shoulder, not specified as traumatic (principal); I10 Essential (primary) hypertension; Z82.49 Family history of ischemic heart disease and other diseases of the circulatory system; Z88.8 Allergy status to other drugs, medicaments and biological substances; Z79.82 Long term (current) use of aspirin
CPT/HCPCS: 36415; 71045; 80053; 83735; 83874; 84484; 85025; 85610; 85730; 93041

== ENCOUNTER → 2020-06-14 | Outpatient (CLI) | payer MEDICARE ==
[~2020-06-14] MED LIST changes: +CYCL10TA9 PO
== END ==
LOC: CARD 09:59
PROVIDERS: ATTEND Internal Medicine Cardiovascular Disease
DX: I25.10 Atherosclerotic heart disease of native coronary artery without angina pectoris (principal); I65.23 Occlusion and stenosis of bilateral carotid arteries; E11.9 Type 2 diabetes mellitus without complications; E78.5 Hyperlipidemia, unspecified
CPT/HCPCS: 93306

== ENCOUNTER 2020-07-27 22:04 | Emergency (ER) | payer MEDICARE ==
[~2020-07-27] VITALS: Ht 149.8 cm; Wt 54.8 kg
[2020-07-27 22:38] LABS: BASOPHILS % (AUTO) 0 % (0-10); EOSINOPHILS # (AUTO) 0.1 10^3/uL (0.0-0.3); EOSINOPHILS % (AUTO) 2 % (0-10); HEMATOCRIT 38 % (35-52); HEMOGLOBIN 12.8 g/dL (11.5-16.0); LYMPHOCYTES # (AUTO) 3.2 10^3/uL (1.0-4.0); LYMPHOCYTES % (AUTO) 38 % (12-44); MEAN CORPUSCULAR HEMOGLOBIN 31 pg (25-34); MEAN CORPUSCULAR HGB CONC 34 g/dL (32-36); MEAN CORPUSCULAR VOLUME 92 fL (80-99); MEAN PLATELET VOLUME 9.6 fL (9.0-12.2); MONOCYTES # (AUTO) 0.5 10^3/uL (0.0-1.0); MONOCYTES % (AUTO) 6 % (0-12); NEUTROPHILS # (AUTO) 4.5 10^3/uL (1.8-7.8); NEUTROPHILS % (AUTO) 53 % (42-75); PLATELET COUNT 217 10^3/uL (130-400); WHITE BLOOD COUNT 8.3 10^3/uL (4.3-11.0)
[2020-07-27 22:49] LABS: ALBUMIN 4.6 GM/DL (3.2-4.5); CHLORIDE 104 MMOL/L (98-107); INR 0.9 (0.8-1.4); POTASSIUM 3.8 MMOL/L (3.6-5.0); PROTHROMBIN TIME PATIENT 12.6 SEC (12.2-14.7); SODIUM 141 MMOL/L (135-145)
[2020-07-27 22:51] LABS: GLUCOSE 130 MG/DL (70-105); TOTAL PROTEIN 8.3 GM/DL (6.4-8.2)
[2020-07-27 22:53] LABS: BILIRUBIN,TOTAL 0.4 MG/DL (0.1-1.0); CARBON DIOXIDE 21 MMOL/L (21-32)
[2020-07-27 22:55] LABS: ALKALINE PHOSPHATASE 77 U/L (40-136); CREATININE SERUM 1.11 MG/DL (0.60-1.30); GFR ESTIMATED 48
[2020-07-27 22:56] LABS: BUN/CREATININE RATIO 23
[2020-07-27 22:58] LABS: ALANINE AMINOTRANSFERASE 22 U/L (0-55); MAGNESIUM 1.7 MG/DL (1.6-2.4)
[2020-07-27 23:18] LABS: TSH (THYROID ANALYZER) 2.06 UIU/ML (0.35-4.94)
[2020-07-27] MEDS ORDERED: LORazepam INJ 2 MG/ML (ATIVAN) VIAL IVP ONE (23:45)
--- NOTE | 2020-07-28 | NUR ---
DR. HATFIELD UPDATED PT CONTACT, GRANDDAUGHTER CHLOE AT THIS TIME.
[2020-07-28] MEDS ORDERED: ALPR0.5T PO (00:38)
--- NOTE | 2020-07-28 00:39 | ED General ---
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 DENIES CP OR SOA. STATES CHECKED BP AND WAS HIGH. Nursing Sepsis Screen: No Definite Risk Source of Information: Patient Exam Limitations: No Limitations History of Present Illness Date Seen by Provider: Jul 27, 2020 Time Seen by Provider: 22:20 Initial Comments This 70-year-old woman presents to the emergency room with complaints of facial flushing, shakiness, nervousness, racing heart after eating dinner tonight. She had some similar symptoms accompanied by chest pain for which she was worked up at [facility] July 19. She has since had a follow-up appointment with Dr. Aguilera and there were reportedly no concerns. Blood pressure tonight is elevated. She denies any chest pain, shortness of breath, fever, or GI symptoms. Allergies and Home Medications Allergies Coded Allergies: nifedipine (Unverified Allergy, Mild, 10/13/08) Home Medications Alprazolam 0.5 Mg Tablet, 0.5 MG PO BID PRN for ANXIETY Prescribed by: JANESSA RUTLEDGE on 07/28/20 0038 Aspirin 81 Mg Tab.chew, 81 MG PO DAILY Prescribed by: MAT AGUILERA on 02/06/20 1435 Clopidogrel Bisulfate 75 Mg Tablet, 75 MG PO DAILY Prescribed by: MAT AGUILERA on 02/06/20 1435 Cyclobenzaprine HCl 10 Mg Tablet, 10 MG PO Q8H PRN for SPASMS Prescribed by: SELENE MUÑOZ on 05/15/20 2257 Hydrocodone Bit/Acetaminophen 1 Each Tablet, 1-2 EACH PO Q4HR PRN PRN PAIN Prescribed by: LIYA CASILLAS on 10/14/08 0057 Insulin Glargine,Hum.rec.anlog 100 Unit/1 Ml Insuln.pen, 10 UNIT SQ DAILY Prescribed by: NITO RUSHING on 02/06/20 1102 Metoprolol Succinate 100 Mg Tab.er.24h, 100 MG PO DAILY Prescribed by: MAT AGUILERA on 02/06/20 1435 Patient Home Medication List Home Medication List Reviewed: Yes Review of Systems Review of Systems Constitutional: no symptoms reported EENTM: no symptoms reported Respiratory: no symptoms reported Cardiovascular: see HPI Gastrointestinal: no symptoms reported Genitourinary: no symptoms reported : No Musculoskeletal: no symptoms reported Skin: no symptoms reported Psychiatric/Neurological: See HPI Hematologic/Lymphatic: No Symptoms Reported Past Cearcak-Cgpysu-Evctfz Hx Past Med/Social Hx: Reviewed Nursing Past Med/Soc Hx Patient Social History Alcohol Use: Denies Use Smoking Status: Never a Smoker 2nd Hand Smoke Exposure: No Recent Infectious Disease Expo: No Recent Hopitalizations: No Past Medical History Surgeries: Yes (HERNIA REPAIR) Abdominal, Coronary Stent, Gallbladder Respiratory: No Cardiac: Yes Heart Attack, Hypertension Neurological: Yes (MENIERE'S / VERTIGO) Vertigo Reproductive Disorders: No Genitourinary: No Gastrointestinal: No Gastroesophageal Reflux, Gall Bladder Disease Musculoskeletal: Yes (LEFT SHOULDER FX. LEFT KNEE FX--NO SURGERIES) Endocrine: Yes Diabetes, Non-Insulin dep HEENT: No Cancer: No Psychosocial: No Integumentary: No Blood Disorders: No Adverse Reaction/Blood Tranf: No Family Medical History Cardiovascular disease 19 FATHER G8 SISTER G8 BROTHER () Hypertension 19 FATHER 19 MOTHER G8 SISTER G8 BROTHER () Kidney disease G8 SISTER Physical Exam Vital Signs Vital Signs - First Documented 07/27/20 07/28/20 22:15 00:47 Temp 37.4 Pulse 98 Resp 20 B/P (MAP) 194/82 (119) Pulse Ox 100 O2 Delivery Room Air Capillary Refill : Less Than 3 Seconds Height, Weight, BMI Height: 4'11.00" Weight: 150lbs. oz. 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, Other (Mildly anxious) Skin: Normal Color, Warm/Dry Progress/Results/Core Measures Suspected Sepsis Recent Fever Within 48 Hours: No Infection Criteria Present: None New/Unexplained Altered Menta: No Sepsis Screen: No Definite Risk SIRS Temperature: Pulse: 98 Respiratory Rate: 20 Laboratory Tests 07/27/20 22:28: White Blood Count 8.3 Blood Pressure 194 /82 Mean: 119 Laboratory Tests 07/27/20 22:28: Creatinine 1.11, INR Comment 0.9, Platelet Count 217, Total Bilirubin 0.4 Results/Orders Lab Results Laboratory Tests Test 07/27/20 22:28 Range/Units White Blood Count 8.3 4.3-11.0 10^3/uL Red Blood Count 4.15 3.80-5.11 10^6/uL Hemoglobin 12.8 11.5-16.0 g/dL Hematocrit 38 35-52 % Mean Corpuscular Volume 92 80-99 fL Mean Corpuscular Hemoglobin 31 25-34 pg Mean Corpuscular Hemoglobin Concent 34 32-36 g/dL Red Cell Distribution Width 12.2 10.0-14.5 % Platelet Count 217 130-400 10^3/uL Mean Platelet Volume 9.6 9.0-12.2 fL Immature Granulocyte % (Auto) 0 % Neutrophils (%) (Auto) 53 42-75 % Lymphocytes (%) (Auto) 38 12-44 % Monocytes (%) (Auto) 6 0-12 % Eosinophils (%) (Auto) 2 0-10 % Basophils (%) (Auto) 0 0-10 % Neutrophils # (Auto) 4.5 1.8-7.8 10^3/uL Lymphocytes # (Auto) 3.2 1.0-4.0 10^3/uL Monocytes # (Auto) 0.5 0.0-1.0 10^3/uL Eosinophils # (Auto) 0.1 0.0-0.3 10^3/uL Basophils # (Auto) 0.0 0.0-0.1 10^3/uL Immature Granulocyte # (Auto) 0.0 0.0-0.1 10^3/uL Prothrombin Time 12.6 12.2-14.7 SEC INR Comment 0.9 0.8-1.4 Activated Partial Thromboplast Time 28 24-35 SEC Sodium Level 141 135-145 MMOL/L Potassium Level 3.8 3.6-5.0 MMOL/L Chloride Level 104 98-107 MMOL/L Carbon Dioxide Level 21 21-32 MMOL/L Anion Gap 16 H 5-14 MMOL/L Blood Urea Nitrogen 26 H 7-18 MG/DL Creatinine 1.11 0.60-1.30 MG/DL Estimat Glomerular Filtration Rate 48 BUN/Creatinine Ratio 23 Glucose Level 130 H 70-105 MG/DL Calcium Level 10.0 8.5-10.1 MG/DL Corrected Calcium 8.5-10.1 MG/DL Magnesium Level 1.7 1.6-2.4 MG/DL Total Bilirubin 0.4 0.1-1.0 MG/DL Aspartate Amino Transf (AST/SGOT) 28 5-34 U/L Alanine Aminotransferase (ALT/SGPT) 22 0-55 U/L Alkaline Phosphatase 77 40-136 U/L Myoglobin 50.4 10.0-92.0 NG/ML Troponin I < 0.028 <0.028 NG/ML Total Protein 8.3 H 6.4-8.2 GM/DL Albumin 4.6 H 3.2-4.5 GM/DL Free Thyroxine 1.13 0.70-1.48 NG/DL TSH [place] Testing 2.06 0.35-4.94 UIU/ML My Orders Orders - JANESSA HATFIELD MD Cbc With Automated Diff (07/27/20 22:26) Magnesium (07/27/20 22:26) Chest 1 View, Ap/Pa Only (07/27/20 22:26) Ekg Tracing (07/27/20 22:26) Comprehensive Metabolic Panel (07/27/20 22:26) Myoglobin Serum (07/27/20 22:26) Protime With Inr (07/27/20 22:26) Partial Thromboplastin Time (07/27/20 22:26) O2 (07/27/20 22:26) Monitor-Rhythm Ecg Trace Only (07/27/20 22:26) Ed Iv/Invasive Line Start (07/27/20 22:26) Troponin I (07/27/20 22:26) Thyroid Analyzer (07/27/20 22:26) Free T4 (Free Thyroxine) (07/27/20 23:35) Lorazepam Injection (Ativan Injection) (07/27/20 23:45) Medications Given in ED Current Medications Medications Dose Ordered Sig/John Route Start Time Stop Time Status Last Admin Dose Admin Lorazepam 0.5 mg ONCE ONCE IVP 07/27/20 23:45 07/27/20 23:46 DC 07/28/20 00:06 0.5 MG Vital Signs/I&O 07/27/20 07/28/20 22:15 00:47 Temp 37.4 37.4 Pulse 98 85 Resp 20 16 B/P (MAP) 194/82 (119) 132/68 (119) Pulse Ox 100 O2 Delivery Room Air Room Air Capillary Refill : Less Than 3 Seconds Blood Pressure Mean: 119 Progress Note : Progress Note Symptoms resolved and blood pressure improved after treatment with Ativan. Work-up was unremarkable. She was prescribed Xanax to use for more extreme his symptoms like those that presented tonight. ECG Initial ECG Impression Date: Jul 27, 2020 Initial ECG Impression Time: 22:22 Initial ECG Rate: 106 Initial ECG Rhythm: S.Tach Comment Sinus tachycardia with first-degree AV block. No axis deviation. No ST elevation or depression. Diagnostic Imaging Diagonstic Imaging: Xray Plain Films/CT/US/NM/MRI: chest Comments Chest x-ray viewed by me. Report not yet available. No acute abnormalities appreciated. Departure Impression Primary Impression: Anxiety Additional Impressions: Tremor Hypertension Qualified Codes: I10 - Essential (primary) hypertension Disposition: 01 HOME, SELF-CARE Condition: Improved Departure-Patient Inst. Decision time for Depature: 00:36 Referrals: NO,LOCAL PHYSICIAN (PCP/Family) Primary Care Physician Patient Instructions: Anxiety, Adult (DC) Add. Discharge Instructions: Use Xanax as prescribed if you have repeat episodes of tremors, hypertension, anxiousness, etc. If Xanax does not improve your symptoms within 30 minutes, return to the emergency room. If you have symptoms of chest pain or shortness o f breath, you should seek medical attention. Follow-up with your primary care provider soon as possible. Please call tomorrow to make an appointment. Call with any questions or concerns. Return to the emergency room if you have any other worsening of condition. All discharge instructions reviewed with patient and/or family. Voiced understanding. Scripts Alprazolam (Xanax) 0.5 Mg Tablet 0.5 MG PO BID PRN for ANXIETY, #5 TAB Prov: JANESSA HATFIELD MD 07/28/20 JANESSA HATFIELD MD Jul 28, 2020 00:39
[2020-07-28 00:47] VITALS: BP 132/68
--- NOTE | 2020-07-28 05:11 | Diagnostic Imaging Report ---
INDICATION: Chest pain, hypertension Portable chest 10:27 PM Heart size and pulmonary vascularity are normal. Lungs are clear. There are no effusions or pneumothoraces. IMPRESSION: Negative chest Dictated by: Dictated on workstation # [id number]
== END 2020-07-28 00:48 | disposition home or self-care (01) ==
LOC: EDUNIT# 22:04 → ER 22:07
DX: F41.9 Anxiety disorder, unspecified (principal); R25.1 Tremor, unspecified; I10 Essential (primary) hypertension; I25.2 Old myocardial infarction; Z82.49 Family history of ischemic heart disease and other diseases of the circulatory system; Z88.8 Allergy status to other drugs, medicaments and biological substances; Z95.5 Presence of coronary angioplasty implant and graft; Z79.82 Long term (current) use of aspirin
CPT/HCPCS: 36415; 71045; 80053; 83735; 83874; 84439; 84443; 84484; 85025; 85610; 85730; 93005; 93041

== ENCOUNTER 2020-08-19 19:18 | Emergency (ER) | payer MEDICARE ==
[~2020-08-19] VITALS: Ht 149.8 cm; Wt 54.8 kg
[~2020-08-19 19:18] MED LIST changes: +ALPR0.5T PO
[2020-08-19] MEDS ORDERED: predniSONE 20 MG TAB PO ONE (20:30)
[2020-08-19] MEDS ORDERED: PRD20T PO (20:42)
--- NOTE | 2020-08-19 20:43 | ED Integumentary General ---
General Chief Complaint: Allergic Reaction Stated Complaint: HIVES / SWOLLEN Nursing Triage Note: generalized hives x7 days, arm swelling x3 days, leg swelling tonight. reports hives started after using diclofenac cream. Source: patient Exam Limitations: no limitations History of Present Illness Date Seen by Provider: Aug 19, 2020 Time Seen by Provider: 20:00 Initial Comments Patient is a 70-year-old female who presents to the emergency room today with a chief complaint of hives all over. Patient states a couple of days ago she started using diclofenac cream on her right shoulder and left shoulder. She states the hives started after this. Patient complains of diffuse itching. She has not taken any medications for the hives or the itching. Patient is concerned today because she noticed that her legs and hands were swelling just a little bit. She was uncertain as to whether or not she could take Benadryl at home. Patient denies any shortness of breath, change in voice, lips or tongue swelling. Patient states her mouth is dry but she is not really concerned about swelling around her mouth. Patient denies any recent illnesses such as fevers, chills, cough or congestion. No GI or complaints. No diarrhea. All other review of systems reviewed and negative except as stated. Timing/Duration: week Severity: mild Location: torso, extremities, generalized Possible Cause: exposure to allergen Associated Symptoms: denies symptoms Allergies and Home Medications Allergies Coded Allergies: nifedipine (Unverified Allergy, Mild, 10/13/08) Home Medications Alprazolam 0.5 Mg Tablet, 0.5 MG PO BID PRN for ANXIETY Prescribed by: JNAESSA RUTLEDGE on 07/28/20 0038 Aspirin 81 Mg Tab.chew, 81 MG PO DAILY Prescribed by: MAT PEREIRA on 02/06/20 1435 Clopidogrel Bisulfate 75 Mg Tablet, 75 MG PO DAILY Prescribed by: MAT PEREIRA on 02/06/20 1435 Cyclobenzaprine HCl 10 Mg Tablet, 10 MG PO Q8H PRN for SPASMS Prescribed by: SELENE MUÑOZ on 05/15/20 2257 Hydrocodone Bit/Acetaminophen 1 Each Tablet, 1-2 EACH PO Q4HR PRN PRN PAIN Prescribed by: LIYA CASILLAS on 10/14/08 0057 Insulin Glargine,Hum.rec.anlog 100 Unit/1 Ml Insuln.pen, 10 UNIT SQ DAILY Prescribed by: NITO RUSHING on 02/06/20 1102 Metoprolol Succinate 100 Mg Tab.er.24h, 100 MG PO DAILY Prescribed by: MAT PEREIRA on 02/06/20 1435 Patient Home Medication List Home Medication List Reviewed: Yes Review of Systems Review of Systems Constitutional: see HPI EENTM: no symptoms reported Respiratory: no symptoms reported Cardiovascular: no symptoms reported Gastrointestinal: no symptoms reported Genitourinary: no symptoms reported Musculoskeletal: no symptoms reported Skin: other (Diffuse hives, mild edema bilateral lower extremities) All Other Systems Reviewed Negative Unless Noted: Yes Past Muyhgja-Fkfijq-Notrah Hx Patient Social History Alcohol Use: Denies Use Smoking Status: Never a Smoker 2nd Hand Smoke Exposure: No Recent Infectious Disease Expo: No Recent Hopitalizations: No Immunizations Up To Date Tetanus Booster (TDap): Unknown Seasonal Allergies Seasonal Allergies: No Past Medical History Surgeries: Yes (HERNIA REPAIR) Abdominal, Coronary Stent, Gallbladder Respiratory: No Cardiac: Yes Coronary Artery Disease, Heart Attack, Hypertension Neurological: Yes (MENIERE'S / VERTIGO) Vertigo : No 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 LEFT KNEE FX--NO SURGERIES) Endocrine: Yes Diabetes, Non-Insulin dep HEENT: No Cancer: No Psychosocial: No Integumentary: Yes Recent Skin Changes Blood Disorders: No Adverse Reaction/Blood Tranf: No Family Medical History Cardiovascular disease 19 FATHER G8 SISTER G8 BROTHER () Hypertension 19 FATHER 19 MOTHER G8 SISTER G8 BROTHER () Kidney disease G8 SISTER Physical Exam Vital Signs Vital Signs - First Documented 08/19/20 19:49 Temp 36.8 Pulse 90 Resp 18 B/P (MAP) 214/96 (135) Pulse Ox 100 O2 Delivery Room Air Capillary Refill : Less Than 3 Seconds General Appearance: WD/WN, no apparent distress HEENT: PERRL/EOMI, normal ENT inspection Neck: full range of motion Cardiovascular: regular rate, rhythm, systolic murmur Respiratory: lungs clear, normal breath sounds, no respiratory distress, no accessory muscle use Gastrointestinal: non tender, soft Back: normal inspection Extremities: normal range of motion, non-tender, no pedal edema, no calf tenderness, normal capillary refill, other (Diffuse mild hives noted to the bilateral upper and lower extremities) Neurologic/Psychiatric: alert, normal mood/affect, oriented x 3 Skin: normal color, warm/dry Skin Problem Location: generalized (Generalized hives noted, mild edema in the lower extremities and bilateral hands) Skin Problem Character: blanching, patchy Progress/Results/Core Measures Results/Orders My Orders Orders - JAMAL DODSON MD Prednisone Tablet (Deltasone Tablet) (08/19/20 20:30) Medications Given in ED Current Medications Medications Dose Ordered Sig/John Route Start Time Stop Time Status Last Admin Dose Admin Prednisone 40 mg ONCE ONCE PO 08/19/20 20:30 08/19/20 20:31 DC 08/19/20 20:33 40 MG Vital Signs/I&O 08/19/20 19:49 Temp 36.8 Pulse 90 Resp 18 B/P (MAP) 214/96 (135) Pulse Ox 100 O2 Delivery Room Air Blood Pressure Mean: 135 Departure Impression Primary Impression: Hives Disposition: 01 HOME, SELF-CARE Condition: Stable Departure-Patient Inst. Decision time for Depature: 20:41 Referrals: NO,LOCAL PHYSICIAN (PCP/Family) Primary Care Physician Patient Instructions: Hives Add. Discharge Instructions: You may take hntd-lrs-tjfzomj Benadryl 1 to 2 tablets every 4-6 hours as needed for hives and itching. Take the prednisone as directed for the next 3 days. Monitor your blood sugar closely over the next several days as the prednisone can increase your blood sugar. Return to the emergency room for any worsening symptoms, shortness of breath, mouth or lip swelling or any other emergent concerns Scripts Prednisone (Prednisone) 20 Mg Tab 40 MG PO DAILY for 3 Days, #6 TAB 0 Refills Prov: JAMAL DODSON MD 08/19/20 JAMAL DODSON MD Aug 19, 2020 20:42
[2020-08-19 20:44] VITALS: BP 187/91
== END 2020-08-19 20:44 | disposition home or self-care (01) ==
LOC: EDUNIT# 19:18 → ER 19:20
DX: L50.9 Urticaria, unspecified (principal); I10 Essential (primary) hypertension; I25.2 Old myocardial infarction; Z95.5 Presence of coronary angioplasty implant and graft; Z88.8 Allergy status to other drugs, medicaments and biological substances; Z82.49 Family history of ischemic heart disease and other diseases of the circulatory system; Z79.82 Long term (current) use of aspirin
CPT/HCPCS: 99283

== ENCOUNTER 2021-05-20 22:32 | Emergency (ER) | payer MEDICARE ==
[~2021-05-20] VITALS: Ht 149.9 cm; Wt 55.3 kg
[~2021-05-20 22:32] MED LIST changes: +PRD20T PO
--- NOTE | 2021-05-20 23:12 | ED Cardiac General ---
History of Present Illness General Chief Complaint: Cardiac/General Problems Stated Complaint: HIGH BP Source: patient Exam Limitations: no limitations History of Present Illness Date Seen by Provider: May 20, 2021 Time Seen by Provider: 23:00 Initial Comments Patient is a 71-year-old female who presents to the emergency department today with a chief complaint of elevated blood pressure, greater than 200 systolic. Patient states she is normally on 0.1 clonidine half tablet twice daily. She ran out today and has missed both her doses. Patient complains of feeling "anxiety", jittery and like she is having a panic attack. She denies any chest pain, shortness of breath. She denies headache, vision changes, unilateral numbness, weakness or tingling. No problems with bowel or bladder. She states she does have a refill of the medication but did not realize that she would be out today. She did take an extra blood pressure pill earlier in the evening without any real resolution of symptoms. She states as she has been in the emergency department her symptoms of "panic" have calmed down. All other review of systems reviewed and negative except as stated. Timing/Duration: 4-6 hours Severity: moderate Activities at Onset: none Associated Systoms: Denies Symptoms Allergies and Home Medications Allergies Coded Allergies: nifedipine (Unverified Allergy, Mild, 10/13/08) Patient Home Medication List Home Medication List Reviewed: Yes Alprazolam (Xanax) 0.5 Mg Tablet, 0.5 MG PO BID PRN for ANXIETY Prescribed by: JANESSA RUTLEDGE on 07/28/20 0038 Aspirin (Aspirin) 81 Mg Tab.chew, 81 MG PO DAILY Prescribed by: MAT PEREIRA on 02/06/20 1435 Clopidogrel Bisulfate (Clopidogrel) 75 Mg Tablet, 75 MG PO DAILY Prescribed by: MAT PEREIRA on 02/06/20 1435 Cyclobenzaprine HCl (Cyclobenzaprine HCl) 10 Mg Tablet, 10 MG PO Q8H PRN for SPASMS Prescribed by: SELENE MUÑOZ on 05/15/202256 Enalapril Maleate (Vasotec) 20 Mg Tablet, (Reported) Entered as Reported by: RACHEL ACE on 10/13/082025 Hydrocodone Bit/Acetaminophen (Vicodin 5-500 Tablet) 1 Each Tablet, 1-2 EACH PO Q4HR PRN Prescribed by: LIYA CASILLAS on 10/14/08 0057 Insulin Glargine,Hum.rec.anlog (Lantus Solostar) 100 Unit/1 Ml Insuln.pen, 10 UNIT SQ DAILY Prescribed by: NITO RUSHING on 02/06/20 110 Levothyroxine Sodium (Levoxyl) 50 Mcg Tablet, (Reported) Entered as Reported by: RACHEL ACE on 10/13/082026 Metformin Hcl (Glucophage) 1,000 Mg Tablet, (Reported) Entered as Reported by: RACHEL ACE on 10/13/082025 Metoprolol Succinate (Toprol Xl) 100 Mg Tab.er.24h, 100 MG PO DAILY Prescribed by: MAT PEREIRA on 02/06/20 143 Prednisone (Prednisone) 20 Mg Tab, 40 MG PO DAILY Prescribed by: JAMAL DODSON on 08/19/202041 Simvastatin (Simvastatin) 10 Mg Tablet, (Reported) Entered as Reported by: RACHEL ACE on 10/13/082025 Review of Systems Review of Systems Constitutional: see HPI EENTM: No Symptoms Reported Respiratory: No Symptoms Reported Cardiovascular: No Symptoms Reported Gastrointestinal: No Symptoms Reported Genitourinary: No Symptoms Reported Musculoskeletal: no symptoms reported Skin: no symptoms reported Psychiatric/Neurological: Anxiety, Other (jittery feeling) All Other Systems Reviewed Negative Unless Noted: Yes Past Nplghiv-Kzgjvf-Rapgid Hx Immunizations Up To Date Tetanus Booster (TDap): Unknown Seasonal Allergies Seasonal Allergies: No Past Medical History Surgeries: Yes (HERNIA REPAIR) Abdominal, Coronary Stent, Gallbladder Respiratory: No Cardiac: Yes Coronary Artery Disease, Heart Attack, Hypertension Neurological: Yes (MENIERE'S / VERTIGO) Vertigo 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 LEFT KNEE FX--NO SURGERIES) Endocrine: Yes Diabetes, Non-Insulin dep HEENT: No Cancer: No Psychosocial: No Integumentary: Yes Recent Skin Changes Blood Disorders: No Adverse Reaction/Blood Tranf: No Family Medical History Cardiovascular disease 19 FATHER G8 SISTER G8 BROTHER () Hypertension 19 FATHER 19 MOTHER G8 SISTER G8 BROTHER () Kidney disease G8 SISTER Physical Exam Vital Signs Vital Signs - First Documented 05/20/21 22:47 Temp 35.7 Pulse 67 Resp 18 B/P (MAP) 224/102 (142) Pulse Ox 98 O2 Delivery Room Air Capillary Refill : Height, Weight, BMI Height: 4'11.00" Weight: 150lbs. oz. 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 Skin: Normal Color, Warm/Dry Progress/Results/Core Measures Results/Orders My Orders Orders - JAMAL DODSON MD Clonidine Tablet (Catapres Tablet) (05/20/21 23:15) Rx-Clonidine Tablet (Rx-Catapres Tablet) (05/21/21 00:13) Medications Given in ED Current Medications Medications Dose Ordered Sig/John Route Start Time Stop Time Status Last Admin Dose Admin Clonidine HCl 0.1 mg ONCE ONCE PO 05/20/21 23:15 05/20/21 23:16 DC 05/20/21 23:18 0.1 MG Vital Signs/I&O 05/20/21 22:47 Temp 35.7 Pulse 67 Resp 18 B/P (MAP) 224/102 (142) Pulse Ox 98 O2 Delivery Room Air Progress Progress Note : Time: 00:13 Progress Note Patient's blood pressure came down nicely. I will be giving her a 0.1 clonidine for home so that she can take another half in the morning. Patient is given good return precautions. She verbalized understanding. All questions are sought and answered. Patient is stable for discharge. Departure Impression Primary Impression: High blood pressure Qualified Codes: I10 - Essential (primary) hypertension Additional Impression: Rebound hypertension Disposition: HOME, SELF-CARE Condition: Stable Departure-Patient Inst. Decision time for Depature: 23:27 Referrals: NO,LOCAL PHYSICIAN (PCP/Family) Primary Care Physician Patient Instructions: High Blood Pressure (DC) Add. Discharge Instructions: Continue your clonidine at 1/2 tablet of the 0.1 mg twice daily. Please come back to the emergency department if you develop any chest pain, shortness of breath, nausea, headache, vision change or any other concerning symptoms. Please follow-up with your primary care physician. JAMAL DODSON MD May 20, 2021 23:12
[2021-05-20] MEDS ORDERED: cloNIDine 0.1 MG (CATAPRES) TAB PO ONE (23:15)
[2021-05-21] MEDS ORDERED: RX-CLOnidine 0.1 MG TAB PPK# 6 PO STA (00:13)
[2021-05-21] MEDS ORDERED: RX-CLOnidine 0.1 MG TAB PPK# 6 ONE (00:20)
[2021-05-21 00:25] VITALS: BP 113/68
[2021-05-22] MEDS ORDERED: ACHD5005 PO (21:47)
== END 2021-05-21 00:25 | disposition home or self-care (01) ==
LOC: ER 22:32
DX: I10 Essential (primary) hypertension (principal); I25.2 Old myocardial infarction; E11.9 Type 2 diabetes mellitus without complications; I25.10 Atherosclerotic heart disease of native coronary artery without angina pectoris; Z79.84 Long term (current) use of oral hypoglycemic drugs; Z79.01 Long term (current) use of anticoagulants; Z79.899 Other long term (current) drug therapy; Z79.82 Long term (current) use of aspirin

== ENCOUNTER 2021-05-22 21:08 | Emergency (ER) | payer MEDICARE ==
[~2021-05-22] VITALS: Ht 150 cm; Wt 55.3 kg
[~2021-05-22 21:08] MED LIST changes: +CYCL10TA25 PO; -CYCL10TA9 PO
[2021-05-22 21:25] VITALS: BP 167/78
--- NOTE | 2021-05-22 21:40 | ED Upper Extremity ---
General Chief Complaint: Upper Extremity Stated Complaint: FALL - R ARM PAIN Nursing Triage Note: C/O RIGHT UPPER ARM PAIN S/P FALL ONTO GRASS WHILE WALKING APPROX. 2034. DENIES OTHER INJURIES. Source: patient Exam Limitations: no limitations (COLLIN KOCH APRN) History of Present Illness Date Seen by Provider: May 22, 2021 Time Seen by Provider: 21:40 Initial Comments Patient was walking at about 830 this evening when she tripped and fell onto the grass landing on her right side. Complains of some right shoulder pain no other injuries. Onset: just prior to arrival Severity: moderate Pain/Injury Location: right shoulder Method of Injury: direct blow, fell Modifying Factors: Worse With Movement (COLLIN KOCH APRN) Allergies and Home Medications Allergies Coded Allergies: nifedipine (Unverified Allergy, Mild, 10/13/08) diclofenac (Verified Allergy, Unknown, 05/21/21) tramadol (Verified Allergy, Unknown, 05/21/21) Patient Home Medication List Home Medication List Reviewed: Yes (COLLIN KOCH APRN) Alprazolam (Xanax) 0.5 Mg Tablet, 0.5 MG PO BID PRN for ANXIETY Prescribed by: JANESSA RUTLEDGE on 07/28/20 0038 Aspirin (Aspirin) 81 Mg Tab.chew, 81 MG PO DAILY Prescribed by: MAT PEREIRA on 02/06/20 1435 Clopidogrel Bisulfate (Clopidogrel) 75 Mg Tablet, 75 MG PO DAILY Prescribed by: MAT PEREIRA on 02/06/20 1435 Cyclobenzaprine HCl (Cyclobenzaprine HCl) 10 Mg Tablet, 10 MG PO Q8H PRN for SPASMS Prescribed by: SELENE MUÑOZ on 05/15/207 Enalapril Maleate (Vasotec) 20 Mg Tablet, (Reported) Entered as Reported by: RACHEL ACE on 10/13/082025 Hydrocodone Bit/Acetaminophen (Vicodin 5-500 Tablet) 1 Each Tablet, 1-2 EACH PO Q4HR PRN Prescribed by: LIYA CASILLAS on 10/14/08 0057 Hydrocodone/Acetaminophen (Hydrocodone-Acetamin 5-325 mg) 1 Each Tablet, 1 TAB PO Q4H PRN for PAIN-MODERATE (5-7) Prescribed by: COLLIN KOCH on 05/22/212147 Insulin Glargine,Hum.rec.anlog (Lantus Solostar) 100 Unit/1 Ml Insuln.pen, 10 UNIT SQ DAILY Prescribed by: NITO RUSHING on 02/06/20 110 Levothyroxine Sodium (Levoxyl) 50 Mcg Tablet, (Reported) Entered as Reported by: RACHEL ACE on 10/13/082026 Metformin Hcl (Glucophage) 1,000 Mg Tablet, (Reported) Entered as Reported by: RACHEL ACE on 10/13/082025 Metoprolol Succinate (Toprol Xl) 100 Mg Tab.er.24h, 100 MG PO DAILY Prescribed by: MAT PEREIRA on 02/06/20 143 Prednisone (Prednisone) 20 Mg Tab, 40 MG PO DAILY Prescribed by: JAMAL DODSON on 08/19/202041 Simvastatin (Simvastatin) 10 Mg Tablet, (Reported) Entered as Reported by: RACHEL ACE on 10/13/082025 Review of Systems Constitutional: see HPI EENTM: see HPI Respiratory: no symptoms reported Cardiovascular: no symptoms reported Genitourinary: no symptoms reported Musculoskeletal: see HPI Skin: no symptoms reported Psychiatric/Neurological: No Symptoms Reported (COLLIN KOCH APRN) Past Wxnbayk-Srlexq-Jpoged Hx Patient Social History Tobacco Use?: No Substance use?: No Alcohol Use?: No Pt feels they are or have been: No (COLLIN KOCH APRN) Immunizations Up To Date Tetanus Booster (TDap): Unknown Influenza Vaccine Up-to-Date: Yes; Up-to-Date (COLLIN KOCH APRN) Seasonal Allergies Seasonal Allergies: No (COLLIN KOCH APRN) Past Medical History Surgery/Hospitalization HX: IDDM,HTN,KS,HERNIA,CHOLECYSTECTOMY Surgeries: Yes (HERNIA REPAIR) Abdominal, Coronary Stent, Gallbladder Respiratory: No Cardiac: Yes Coronary Artery Disease, Heart Attack, Hypertension Neurological: Yes (MENIERE'S / VERTIGO) Vertigo 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 LEFT KNEE FX--NO SURGERIES) Endocrine: Yes Diabetes, Non-Insulin dep HEENT: No Cancer: No Psychosocial: No Integumentary: Yes Recent Skin Changes Blood Disorders: No Adverse Reaction/Blood Tranf: No (COLLIN KOCH APRN) Family Medical History Cardiovascular disease 19 FATHER G8 SISTER G8 BROTHER () Hypertension 19 FATHER 19 MOTHER G8 SISTER G8 BROTHER () Kidney disease G8 SISTER Physical Exam Vital Signs Vital Signs - First Documented 05/22/21 21:25 Temp 37.0 Pulse 69 Resp 16 B/P (MAP) 167/78 (107) Pulse Ox 97 O2 Delivery Room Air (MARLEE,ELLA K DO) Vital Signs Capillary Refill : Less Than 3 Seconds (COLLIN KOCH APRN) Height, Weight, BMI Height: 4'11.00" Weight: 150lbs. oz. 68.632906pe; 24.00 BMI Method:Stated General Appearance: WD/WN, no apparent distress HEENT: PERRL/EOMI, normal ENT inspection Neck: non-tender, full range of motion Respiratory: no respiratory distress, no accessory muscle use Shoulder: limited ROM, pain, soft tissue tenderness, swelling Elbow/Forearm: normal inspection, non-tender Wrist: Yes normal inspection, Yes non-tender Hand: normal inspection, non-tender Neurologic/Tendon: normal sensation, normal motor functions Neurologic/Psychiatric: alert, normal mood/affect, oriented x 3 Skin: normal color, warm/dry There are no open wounds or abrasions over the proximal humerus. Normal sensation capillary refill and motor function of the fingertips. No pain at the elbow. No pain in her neck. (COLLIN KOCH APRN) Progress/Results/Core Measures Results/Orders Vital Signs/I&O 05/22/21 21:25 Temp 37.0 Pulse 69 Resp 16 B/P (MAP) 167/78 (107) Pulse Ox 97 O2 Delivery Room Air (MARLEE,ELLA K DO) Blood Pressure Mean: 107 Diagnostic Imaging Diagonstic Imaging: Xray Comments NAME: MILAGROS MOON Aries VILLELA REC#: [id number] PT STATUS: REG ER : 1950 PHYSICIAN: COLLIN KOCH APRN ADMIT DATE: 05/22/21/ER Draft Date of Exam:05/22/21 HUMERUS, RIGHT, 2 VIEWS HISTORY: Pain in the right upper arm after fall. COMPARISON: None TECHNIQUE: 2 views of the right humerus FINDINGS: There is a nondisplaced fracture of the proximal right humerus metaphysis. No extension to the articular surface is seen. Glenohumeral alignment appears normal. IMPRESSION: 1. Nondisplaced fracture of the proximal right humerus. Dictated on workstation # [id number] Dict: 05/22/212151 Trans: 05/22/212152 [facility] [id number] Interpreted by: MARISELA DUBOIS MD Electronically signed by: (COLLIN KOCH APRN) Departure Communication (Admissions) X-ray shows a lucency through the head of the humerus. We will give her a sling, ice pack, hydrocodone for pain and discharged with orthopedic follow-up. (COLLIN KOCH APRN) Impression Primary Impression: Humeral head fracture Disposition: 01 HOME, SELF-CARE Condition: Stable Departure-Patient Inst. Decision time for Depature: 21:46 (COLLIN KOCH APRN) Referrals: NO,LOCAL PHYSICIAN (PCP) Primary Care Physician MAKENNA MCINTYRE MD, TERRY D MD ZAFUTA, MICHAEL P MD Patient Instructions: Upper Arm Fracture ED Add. Discharge Instructions: 1. Ice pack to the area. Sling at all times except when showering. Pain medication as directed. Follow-up with orthopedics. All discharge instructions reviewed with patient and/or family. Voiced understanding. Scripts Hydrocodone/Acetaminophen (Hydrocodone-Acetamin 5-325 mg) 1 Each Tablet 1 TAB PO Q4H PRN for PAIN-MODERATE (5-7), #14 TAB Prov: COLLIN KOCH APRN 05/22/21 ATTENDING PHYSICIAN NOTE: I WAS PHYSICALLY PRESENT ER PHYSICIAN WHEN THIS PATIENT WAS IN ER, BUT I WAS NOT INVOLVED IN ANY DECISION MAKING OR ANY CARE OF THIS PATIENT. (ELLA WHALEN DO) COLLIN KOCH APRN May 22, 2021 21:40 ELLA WHALEN DO May 22, 2021 23:15
[2021-05-22] MEDS ORDERED: ACHD5005 PO (21:47)
--- NOTE | 2021-05-22 21:54 | Diagnostic Imaging Report ---
HISTORY: Pain in the right upper arm after fall. COMPARISON: None TECHNIQUE: 2 views of the right humerus FINDINGS: There is a nondisplaced fracture of the proximal right humerus metaphysis. No extension to the articular surface is seen. Glenohumeral alignment appears normal. IMPRESSION: 1. Nondisplaced fracture of the proximal right humerus. Dictated by: Dictated on workstation # [id number]
== END 2021-05-22 22:18 | disposition home or self-care (01) ==
LOC: EDUNIT# 21:08 → ER 21:09
DX: S42.201A Unspecified fracture of upper end of right humerus, initial encounter for closed fracture (principal); I25.2 Old myocardial infarction; I10 Essential (primary) hypertension; E11.9 Type 2 diabetes mellitus without complications; I25.10 Atherosclerotic heart disease of native coronary artery without angina pectoris; K21.9 Gastro-esophageal reflux disease without esophagitis; Z79.84 Long term (current) use of oral hypoglycemic drugs; Z79.82 Long term (current) use of aspirin; Z79.899 Other long term (current) drug therapy; Z79.01 Long term (current) use of anticoagulants; W01.0XXA Fall on same level from slipping, tripping and stumbling without subsequent striking against object, initial encounter
CPT/HCPCS: 73060; 99283; A4565

== ENCOUNTER 2023-04-16 23:51 | Emergency (ER) | payer MEDICARE ==
[~2023-04-16] VITALS: Ht 149.8 cm; Wt 58.0 kg
[~2023-04-16 23:51] MED LIST changes: +ACHD5005 PO; +CIPR2.5D18 OP; -CIPR2.5D3 OP
--- NOTE | 2023-04-17 00:22 | ED General ---
General Chief Complaint: Fever-Adult/Adol Stated Complaint: FEVER/NAUSEA Nursing Triage Note: PT TO RM 10 BY EMS WITH CC OF FEVER, NAUSEA AND GENERALIZED WEAKNESS SINCE THIS AM. PT DENIES SOA AND PAIN AT THIS TIME. Source of Information: Patient, EMS Exam Limitations: No Limitations History of Present Illness Date Seen by Provider: Apr 17, 2023 Time Seen by Provider: 23:53 Initial Comments This 73-year-old woman presents to the emergency room via [facility] with complaints of fever, nausea, mild cough, and generalized weakness. Her granddaughter plan to bring her to the emergency room but patient was too weak and too nauseated. EMS reported temperature of 103.3. Patient did not have a thermometer at home. She is afebrile on arrival to the ER. EMS administered Zofran 4 mg which resolved her nausea. Patient complained of headache earlier which has since resolved. She has multiple chronic health conditions including diabetes, hypertension, hyperlipidemia, and coronary artery disease. She does not have any chest pain or shortness of breath at this time. Allergies and Home Medications Allergies Coded Allergies: nifedipine (Unverified Allergy, Mild, 10/13/08) diclofenac (Verified Allergy, Unknown, 05/21/21) tramadol (Verified Allergy, Unknown, 05/21/21) Patient Home Medication List Home Medication List Reviewed: Yes Alprazolam (Xanax) 0.5 Mg Tablet, 0.5 MG PO BID PRN for ANXIETY Prescribed by: JANESSA RUTLEDGE on 07/28/20 0038 Aspirin (Aspirin) 81 Mg Tab.chew, 81 MG PO DAILY Prescribed by: MAT PEREIRA on 02/06/20 1435 Clopidogrel Bisulfate (Clopidogrel) 75 Mg Tablet, 75 MG PO DAILY Prescribed by: MAT PEREIRA on 02/06/20 1435 Cyclobenzaprine HCl (Cyclobenzaprine HCl) 10 Mg Tablet, 10 MG PO Q8H PRN for SPASMS Prescribed by: SELENE MUÑOZ on 05/15/202256 Enalapril Maleate (Vasotec) 20 Mg Tablet, (Reported) Entered as Reported by: RACHEL ACE on 10/13/082025 Hydrocodone Bit/Acetaminophen (Vicodin 5-500 Tablet) 1 Each Tablet, 1-2 EACH PO Q4HR PRN Prescribed by: LIYA CASILLAS on 10/14/08 0057 Hydrocodone/Acetaminophen (Hydrocodone-Acetamin 5-325 mg) 1 Each Tablet, 1 TAB PO Q4H PRN for PAIN-MODERATE (5-7) Prescribed by: COLLIN KOCH on 05/22/212147 Insulin Glargine,Hum.rec.anlog (Lantus Solostar) 100 Unit/1 Ml Insuln.pen, 10 UNIT SQ DAILY Prescribed by: NITO RUSHING on 02/06/20 110 Levothyroxine Sodium (Levoxyl) 50 Mcg Tablet, (Reported) Entered as Reported by: RACHEL ACE on 10/13/082026 Metformin Hcl (Glucophage) 1,000 Mg Tablet, (Reported) Entered as Reported by: RACHEL ACE on 10/13/082025 Metoprolol Succinate (Toprol Xl) 100 Mg Tab.er.24h, 100 MG PO DAILY Prescribed by: MAT PEREIRA on 02/06/20 1435 Nirmatrelvir/Ritonavir (Paxlovid 300-100 mg Pack (Eua)) 300 Mg (150 Mg X 2)-100 Mg Tab.ds.pk, 1 EACH PO BID Prescribed by: JANESSA RUTLEDGE on 04/17/23 011 Ondansetron (Ondansetron Odt) 4 Mg Tab.rapdis, 4 MG SL Q4H PRN for NAUSEA/VOMITING Prescribed by: JANESSA RUTLEDGE on 04/17/23 011 Prednisone (Prednisone) 20 Mg Tab, 40 MG PO DAILY Prescribed by: JAMAL DODSON on 08/19/202041 Simvastatin (Simvastatin) 10 Mg Tablet, (Reported) Entered as Reported by: RACHEL ACE on 10/13/082025 Review of Systems Review of Systems Constitutional: see HPI EENTM: no symptoms reported Respiratory: see HPI Cardiovascular: no symptoms reported Gastrointestinal: see HPI Genitourinary: no symptoms reported : No Musculoskeletal: no symptoms reported Skin: no symptoms reported Psychiatric/Neurological: No Symptoms Reported Hematologic/Lymphatic: No Symptoms Reported Immunological/Allergic: no symptoms reported Past Ilmzuzv-Axnydl-Vojopb Hx Patient Social History Tobacco Use?: No Substance use?: No Alcohol Use?: No Immunizations Up To Date Tetanus Booster (TDap): Unknown Seasonal Allergies Seasonal Allergies: No Past Medical History Surgery/Hospitalization HX: IDDM,HTN,NY,HERNIA,CHOLECYSTECTOMY Surgeries: Yes (HERNIA REPAIR) Abdominal, Coronary Stent, Gallbladder Respiratory: No Cardiac: Yes Coronary Artery Disease, Heart Attack, High Cholesterol, Hypertension Neurological: Yes (MENIERE'S / VERTIGO) Vertigo : No Reproductive Disorders: 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 LEFT KNEE FX--NO SURGERIES) Endocrine: Yes Diabetes, Non-Insulin dep HEENT: No Cancer: No Psychosocial: No Integumentary: Yes Recent Skin Changes Blood Disorders: No Adverse Reaction/Blood Tranf: No Family Medical History Cardiovascular disease 19 FATHER G8 SISTER G8 BROTHER () Hypertension 19 FATHER 19 MOTHER G8 SISTER G8 BROTHER () Kidney disease G8 SISTER Physical Exam Vital Signs Vital Signs - First Documented 04/16/23 23:54 Temp 37.2 Pulse 69 Resp 20 B/P (MAP) 144/70 (94) Pulse Ox 97 O2 Delivery Room Air Capillary Refill : Less Than 3 Seconds Height, Weight, BMI Height: 4'11.00" Weight: 150lbs. oz. 68.253732od; 25.00 BMI Method:Stated General Appearance: No Apparent Distress, WD/WN HEENT: PERRL/EOMI, Normal ENT Inspection, Other (Oropharynx somewhat dry) Neck: Normal Inspection; No JVD Respiratory: Lungs Clear, Normal Breath Sounds, No Accessory Muscle Use, Crac kles (Faint in the bases) Cardiovascular: Regular Rate, Rhythm, No Edema, No Murmur Gastrointestinal: Normal Bowel Sounds, Non Tender, Soft Extremity: Normal Inspection, No Pedal Edema Neurologic/Psychiatric: Alert, Oriented x3, No Motor/Sensory Deficits, Normal Mood/Affect Skin: Normal Color, Warm/Dry Progress/Results/Core Measures Suspected Sepsis SIRS Temperature: Pulse: 69 Respiratory Rate: 20 Laboratory Tests 04/16/23 23:57: White Blood Count 8.3 Blood Pressure 144 /70 Mean: 94 Laboratory Tests 04/16/23 23:57: Creatinine 1.01, Platelet Count 181, Total Bilirubin 0.5 Results/Orders Lab Results Laboratory Tests Test 04/16/23 23:57 Range/Units White Blood Count 8.3 4.3-11.0 10^3/uL Red Blood Count 3.97 3.80-5.11 10^6/uL Hemoglobin 12.3 11.5-16.0 g/dL Hematocrit 37 35-52 % Mean Corpuscular Volume 93 80-99 fL Mean Corpuscular Hemoglobin 31 25-34 pg Mean Corpuscular Hemoglobin Concent 33 32-36 g/dL Red Cell Distribution Width 12.4 10.0-14.5 % Platelet Count 181 130-400 10^3/uL Mean Platelet Volume 9.7 9.0-12.2 fL Immature Granulocyte % (Auto) 1 % Neutrophils (%) (Auto) 82 H 42-75 % Lymphocytes (%) (Auto) 7 L 12-44 % Monocytes (%) (Auto) 10 0-12 % Eosinophils (%) (Auto) 1 0-10 % Basophils (%) (Auto) 0 0-10 % Neutrophils # (Auto) 6.8 1.8-7.8 10^3/uL Lymphocytes # (Auto) 0.6 L 1.0-4.0 10^3/uL Monocytes # (Auto) 0.8 0.0-1.0 10^3/uL Eosinophils # (Auto) 0.1 0.0-0.3 10^3/uL Basophils # (Auto) 0.0 0.0-0.1 10^3/uL Immature Granulocyte # (Auto) 0.0 0.0-0.1 10^3/uL Neutrophils % (Manual) 85 % Lymphocytes % (Manual) 6 % Monocytes % (Manual) 6 % Eosinophils % (Manual) 0 % Basophils % (Manual) 0 % Band Neutrophils 1 % Atypical Lymphocytes 2 % Toxic Granulation 1+ Sodium Level 137 135-145 MMOL/L Potassium Level 3.9 3.6-5.0 MMOL/L Chloride Level 107 98-107 MMOL/L Carbon Dioxide Level 19 L 21-32 MMOL/L Anion Gap 11 5-14 MMOL/L Blood Urea Nitrogen 18 7-18 MG/DL Creatinine 1.01 0.60-1.30 MG/DL Estimat Glomerular Filtration Rate 58 BUN/Creatinine Ratio 18 Glucose Level 231 H 70-105 MG/DL Calcium Level 9.0 8.5-10.1 MG/DL Corrected Calcium 8.9 8.5-10.1 MG/DL Magnesium Level 1.9 1.6-2.4 MG/DL Total Bilirubin 0.5 0.1-1.0 MG/DL Aspartate Amino Transf (AST/SGOT) 54 H 5-34 U/L Alanine Aminotransferase (ALT/SGPT) 34 0-55 U/L Alkaline Phosphatase 61 40-136 U/L Total Protein 7.7 6.4-8.2 GM/DL Albumin 4.1 3.2-4.5 GM/DL Influenza Type A (RT-PCR) Not Detected Not Detecte Influenza Type B (RT-PCR) Not Detected Not Detecte SARS-CoV-2 RNA (RT-PCR) Detected H Not Detecte My Orders Orders - JANESSA HATFIELD MD Cbc And Automated Diff (04/17/23 00:17) Comprehensive Metabolic Panel (04/17/23:) Magnesium (04/17/23:) Ed Iv/Invasive Line Start (04/17/23:) Lactated Ringers 1,000 Ml (Lactated Ring (04/17/23 00:30) Covid 19 Inhouse Test (04/17/23:) Influenza A And B By Pcr (04/17/23 00:17) Chest 1 View, Ap/Pa Only (04/17/23 00:20) Manual Differential (04/16/23 23:57) Medications Given in ED Vital Signs/I&O 04/16/23 04/17/23 23:54 01:30 Temp 37.2 Pulse 69 67 Resp 20 18 B/P (MAP) 144/70 (94) 126/56 Pulse Ox 97 95 O2 Delivery Room Air Room Air Capillary Refill : Less Than 3 Seconds Blood Pressure Mean: 94 Progress Note #1: Time: 00:52 Progress Note Patient was interviewed and examined upon arrival. Patient was no longer nauseated after receiving Zofran. A liter of LR was ordered for hydration. Labs were obtained, reviewed, and interpreted by me. CBC was relatively unremarkable. Relative lymphopenia of 0.6 was noted. CMP was relatively unremarkable except for mild hyperglycemia of 231. The remainder of the CMP was unremarkable. Influenza swab was negative, but COVID-19 swab was positive. Progress Note #2: Progress Note Use of Paxlovid was discussed with the patient. She requested the prescription after our discussion. See discharge instructions for further discussion. She was discharged with family in improved condition. Diagnostic Imaging Diagonstic Imaging: Xray Plain Films/CT/US/NM/MRI: chest Comments Chest x-ray was reviewed and interpreted by me and compared with prior. Radiologist's report was not yet available. There were no acute abnormalities appreciated by my interpretation and no adverse changes from prior. Departure Impression Primary Impression: COVID-19 Additional Impressions: Nausea Generalized weakness Disposition: HOME, SELF-CARE Condition: Improved Departure-Patient Inst. Decision time for Depature: 00:56 Referrals: [facility] (PCP/Family) Primary Care Physician Patient Instructions: COVID-19 (DC) Add. Discharge Instructions: Drink plenty of clear liquids to stay well-hydrated. For pain or fever you may take Tylenol (acetaminophen) up to 1000 mg every 6 hours as needed. Start Paxil that is soon as possible. Complete the entire 5-day course of treatment, even if you are feeling better. Do not take atorvastatin, simvastatin, or any other cholesterol medication while you are taking Paxlovid. You may otherwise continue your other medications. Sometimes blood pressure may lower while on Paxlovid. If this occurs, you may stop one of your blood pressure medications temporarily or cut the medication in half while you are on Paxlovid. If you have access to a pulse oximeter, you may check your oxygen levels a couple times a day or at any time you feel more short of breath. If you have any oxygen desaturation level less than 90% or multiple oxygen saturation levels less than 92%, please return to the emergency room. You may use Zofran (ondansetron) as prescribed for nausea and vomiting. You should remain in quarantine for 5 days starting with April 17. After 5 days, you may come out of quarantine if you are feeling better, but you should mask for an additional 5 days. Return to the emergency room if you have worsening symptoms despite following these instructions. All discharge instructions reviewed with patient and/or family. Voiced understanding. Scripts Ondansetron (Ondansetron Odt) 4 Mg Tab.rapdis 4 MG SL Q4H PRN for NAUSEA/VOMITING, #10 TAB Prov: JANESSA HATFIELD MD 04/17/23 Nirmatrelvir/Ritonavir (Paxlovid 300-100 mg Pack (Eua)) 300 Mg (150 Mg X 2)-100 Mg Tab.ds.pk 1 EACH PO BID, #1 PKG Prov: JANESSA HATFIELD MD 04/17/23 Copy Copies To 1: MAXI GERONIMO JOSHUA T MD Apr 17, 2023 00:22
[2023-04-17 00:24] LABS: BASOPHILS % (AUTO) 0 % (0-10); EOSINOPHILS # (AUTO) 0.1 10^3/uL (0.0-0.3); EOSINOPHILS % (AUTO) 1 % (0-10); HEMATOCRIT 37 % (35-52); HEMOGLOBIN 12.3 g/dL (11.5-16.0); LYMPHOCYTES # (AUTO) 0.6 10^3/uL (1.0-4.0); LYMPHOCYTES % (AUTO) 7 % (12-44); MEAN CORPUSCULAR HEMOGLOBIN 31 pg (25-34); MEAN CORPUSCULAR HGB CONC 33 g/dL (32-36); MEAN CORPUSCULAR VOLUME 93 fL (80-99); MEAN PLATELET VOLUME 9.7 fL (9.0-12.2); MONOCYTES # (AUTO) 0.8 10^3/uL (0.0-1.0); MONOCYTES % (AUTO) 10 % (0-12); NEUTROPHILS # (AUTO) 6.8 10^3/uL (1.8-7.8); NEUTROPHILS % (AUTO) 82 % (42-75); PLATELET COUNT 181 10^3/uL (130-400); WHITE BLOOD COUNT 8.3 10^3/uL (4.3-11.0)
[2023-04-17 00:30] LABS: ALBUMIN 4.1 GM/DL (3.2-4.5); POTASSIUM 3.9 MMOL/L (3.6-5.0)
[2023-04-17] MEDS ORDERED: LACTATED RINGERS 1,000 ML 1,000 ML IV ONE (00:30)
[2023-04-17 00:32] LABS: TOTAL PROTEIN 7.7 GM/DL (6.4-8.2)
[2023-04-17 00:34] LABS: BILIRUBIN,TOTAL 0.5 MG/DL (0.1-1.0)
[2023-04-17 00:36] LABS: CREATININE SERUM 1.01 MG/DL (0.60-1.30)
[2023-04-17 00:39] LABS: MAGNESIUM 1.9 MG/DL (1.6-2.4)
[2023-04-17 00:42] LABS: BAND NEUTROPHILS 1 %; BASOPHILS % (MANUAL) 0 %; EOSINOPHILS % (MANUAL) 0 %; LYMPHOCYTES % (MANUAL) 6 %; MONOCYTES % (MANUAL) 6 %; NEUTROPHILS % (MANUAL) 85 %
[2023-04-17 00:43] LABS: ATYPICAL LYMPHOCYTES 2 %; TOXIC GRANULATION/VACUOLAZATIO 1+
[2023-04-17] MEDS ORDERED: ONDA4TAB11 SL (01:16)
[2023-04-17] MEDS ORDERED: NIRM1TAB PO (01:16)
[2023-04-17 01:30] VITALS: BP 126/56
--- NOTE | 2023-04-17 04:47 | Diagnostic Imaging Report ---
Indication: Cough and fever Portable chest 12:48 AM Heart size and pulmonary vascularity are normal. Lungs are clear. There are no effusions or pneumothoraces. IMPRESSION: Negative chest Dictated by: Dictated on workstation # [id number]
== END 2023-04-17 01:30 | disposition home or self-care (01) ==
LOC: EDUNIT# 23:51 → ER 23:52
DX: U07.1 COVID-19 (principal); R11.0 Nausea; R53.1 Weakness; R50.9 Fever, unspecified; R05.9 Cough, unspecified; R51.9 Headache, unspecified; E11.65 Type 2 diabetes mellitus with hyperglycemia; Z79.4 Long term (current) use of insulin
CPT/HCPCS: 36415; 71045; 80053; 83735; 85007; 85027; 87636; 96360